=== PATIENT | female | born 1980 | race Caucasian/White ===

== ENCOUNTER 2023-01-14 13:59 | Outpatient (OUT) | payer OTHER, SELFPAY ==
--- NOTE | 2023-01-14 14:27 | ECG_ITS ---
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
--- NOTE | 2023-01-14 14:38 | P.GSHP_ITS ---
History of Present Illness History of Present Illness Chief complaint: pat visit Narrative: Patient presents for preadmission testing. The patient states for many years, since the of her children, she has had heavy painful menstrual cycles. She denies nausea, vomiting, fever, or any other complaints. Review of Systems ROS Narrative REVIEW OF SYSTEMS: Negative except as stated in HPI, ten or more systems reviewed. Constitutional: No fever , chills, weakness ENT: No sore throat or epistaxis Cardiovascular: No edema, chest pain, or palpitations Respiratory: No shortness of breath, cough, or wheezing Musculoskeletal: No joint pain or swelling Gastrointestinal: No abdominal pain, constipation, diarrhea, or vomiting Genitourinary: No dysuria or hematuria Neurological: No numbness, tingling, weakness, or headache Psychiatric: No mood changes PFSH PFS Medical History (Updated 01/14/23 @ 14:24 by Emilia Marie NP) Surgical History (Updated 01/14/23 @ 14:24 by Emilia Marie NP) Family History (Updated 01/14/23 @ 14:21 by Emilia Marie NP) Other Family history of COPD (chronic obstructive pulmonary disease) Family history of coronary artery disease Family history of diabetes mellitus Family history of heart disease Family history of hypertension Family history of myocardial infarction Family history of skin cancer Testicular cancer Social History (Updated 01/14/23 @ 14:26 by Emilia Marie NP) Within the past year, how often did you have a drink containing alcohol: monthly or less Smoking status: Never smoker Previous occupational history: healthcare social worker Highest level of school completed/degree received: high school graduate Meds Home Medications and Allergies Home Medications Medication Instructions Recorded Confirmed Type ascorbic acid (vitamin C) 500 mg mg PO 01/14/23 History capsule calcium carbonate 600 mg calcium 300 mg PO DAILY 01/14/23 01/14/23 History (1,500 mg) tablet (Calcium) cholecalciferol (vitamin D3) 25 25 mcg PO DAILY 01/14/23 01/14/23 History mcg (1,000 unit) capsule meloxicam 15 mg tablet 15 mg PO DAILY 01/14/23 01/14/23 History multivitamin (Daily Multi-Vitamin 1 tab PO DAILY 01/14/23 01/14/23 History tablet) zinc glycinate 30 mg capsule 30 mg PO DAILY 01/14/23 01/14/23 History Allergies Allergy/AdvReac Type Severity Reaction Status Date / Time adhesive Allergy Rash Verified 01/14/23 14:19 amoxicillin [From Augmentin] Allergy Nausea Verified 01/14/23 14:19 clavulanic acid Allergy Nausea Verified 01/14/23 14:19 [From Augmentin] Sulfa (Sulfonamide Allergy Hives Verified 01/14/23 14:19 Antibiotics) Exam Narrative: Exam Narrative: Constitutional: Awake, alert, comfortable, well-appearing, nontoxic, interactive, vital signs as charted Head: Normocephalic, atraumatic Neck: Supple, normal appearance, normal range of motion, no meningeal signs, no lymphadenopathy Respiratory: No respiratory distress, breath sounds clear Cardiovascular: Regular rate and rhythm, strong and regular heart tones Abdomen: Nontender, normal bowel sounds, soft, no CVA tenderness Musculoskeletal: Normal gait, no swelling or edema Skin: No rashes or induration, no lesions, only visible skin inspected Neuro: No neurological deficits, normal sensation Psychiatric: Oriented ?3, normal affect Assessment and Plan Assessment and Plan (1) Abnormal uterine bleeding (AUB): (2) Dysmenorrhea: (3) Menorrhagia: Plan Endometrial ablation/Josefina scheduled with Dr. Arriaga 01/27/2023.
== END 2023-01-14 14:00 ==
PROVIDERS: PCP Obstetrics & Gynecology; Visit Provider Obstetrics & Gynecology
DX: N93.9 Abnormal uterine and vaginal bleeding, unspecified (principal); N94.6 Dysmenorrhea, unspecified; N92.0 Excessive and frequent menstruation with regular cycle; Z01.810 Encounter for preprocedural cardiovascular examination
CPT/HCPCS: 93005; G0463

== ENCOUNTER 2023-01-27 06:17 | Day surgery (SDC) | payer OTHER, SELFPAY ==
[2023-01-14 14:20] VITALS: BP 109/74; PULSE 61; RESP 16; TEMP 36.3; O2SAT 99; BMI 25.7
[2023-01-27] VITALS (9 sets, daily range): BP systolic 107–119; BP diastolic 67–80; PULSE 64–112; RESP 14–18; TEMP 36.2–36.4; O2SAT 97–100; BMI 25.4
[2023-01-27 06:32] LABS: Basophils Percent Auto 0.6 % (0.2-2.0); Eosinophils Absolute Auto 0.1 10^3/uL (0.0-0.7); Eosinophils Percent Auto 1.8 % (0.9-7.0); Hematocrit 40.6 % (36.0-48.0); Hemoglobin 13.9 g/dL (12.0-16.0); Immature Granulocytes Abs Auto 0.04 10^3/uL (0.00-0.03); Immature Granulocytes Pct Auto 0.7 % (0.0-0.5); Lymphocytes Absolute Auto 1.7 10^3/uL (1.2-3.8); Lymphocytes Percent Auto 30.4 % (20.5-60.0); Mean Corpuscular HGB Conc 34.2 g/dL (29.9-35.2); Mean Corpuscular Hemoglobin 29.3 pg (26.7-34.0); Mean Corpuscular Volume 85.5 fL (81.0-99.0); Mean Platelet Volume 9.9 fL (9.5-13.5); Monocytes Absolute Auto 0.4 10^3/uL (0.3-0.8); Monocytes Percent Auto 7.2 % (1.7-12.0); Neutrophils Absolute Auto 3.2 10^3/uL (1.4-6.5); Neutrophils Percent Auto 59.3 % (43.0-75.0); Platelet Count 288 10^3/uL (150-450); Red Blood Count 4.75 10^6/uL (4.20-5.40); Red Cell Distribution Width 12.2 % (11.0-15.0); White Blood Count 5.4 10^3/uL (4.0-11.0)
[2023-01-27 06:47] LABS: HCG Quantitative <1 mIU/mL
[2023-01-27] MEDS: LACTATED RINGER'S SOLUTION 1,000 ML 50 ML IV ×2 (07:18→08:10)
[2023-01-27] MEDS: SCOPOLAMINE 1 EACH PATCH.TD.3 1 PATCH TD (07:26)
--- NOTE | 2023-01-27 08:02 | PC.NURSE ---
16FR RED RUBBER STRAIGHT CATH FOR 300CC CLEAR YELLOW URINE
--- NOTE | 2023-01-27 08:29 | OP_ITS ---
OPERATION DATE: ??01/27/2023 PROCEDURE:? Josefina endometrial ablation. PREOPERATIVE DIAGNOSIS:? Menorrhagia. POSTOPERATIVE DIAGNOSIS:? Menorrhagia. ANESTHESIA:? General. SURGEON:? Vince Arriaga D.O. CHAIR SPRING ASSEMBLER:? None. FINDINGS:? Both ostia seen.? Normal appearing uterus.? No gross polyps, fibroids or malignancies. SPECIMEN:? None. BLOOD LOSS:? 5 mL. PROCEDURE:? The patient was taken back to the OR where she was prepped and draped in the normal sterile fashion after being placed in the dorsal lithotomy position, after being placed under general anesthesia without difficulty.? A weighted speculum was placed into the vagina. The anterior lip was grasped with a single tooth tenaculum. The patient was then sounded to approximated 9 cm. The patient?s cervix was gently dilated using Hegar dilators. The hysteroscope was passed through the cervix into the uterus where both ostia were seen. No gross evidence of polyps, fibroids or malignancy. The cervical length was noted to be 5 cm. The total cavity length is 4 cm.? The Josefina ablation apparatus was set to approximately 4 cm in length. This was placed through the cervix and into the uterus. After the seal was tested, at that time the total ablation of 120 seconds was performed with the Josefina withoutdifficulty. All instruments were removed from the vagina. Excellent hemostasis noted.? Sponge and lap count correct times 2.? Patient taken to recovery in stable condition. [facility]
--- NOTE | 2023-01-27 08:45 | PC.NURSE ---
carlitos pad dry and intact
--- NOTE | 2023-01-27 08:50 | PC.NURSE ---
heat pack to abdomen
--- NOTE | 2023-01-27 09:33 | PC.NURSE ---
peripad dry; denies urge to void; denies urge for pain medication at this time
== END 2023-01-27 10:05 ==
PROVIDERS: PCP Obstetrics & Gynecology; Visit Provider Obstetrics & Gynecology
PROC: (CPT 58563; principal; 2023-01-27 07:30)
DX: N92.0 Excessive and frequent menstruation with regular cycle (principal); Z79.899 Other long term (current) drug therapy; N94.6 Dysmenorrhea, unspecified; N93.9 Abnormal uterine and vaginal bleeding, unspecified
CPT/HCPCS: 58563; 36415; 84702; 85025; J2704

== ENCOUNTER 2023-04-26 18:17 | Emergency (ER) | payer OTHER, SELFPAY ==
[2023-04-26 18:19] VITALS: BP 155/101; PULSE 101; RESP 18; TEMP 37.4; O2SAT 100; BMI 57.4
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
[2023-04-26 21:03] VITALS: BP 125/81
== END 2023-04-26 21:05 | disposition home or self-care (01) ==
PROVIDERS: Emergency Provider Internal Medicine
DX: S06.0X0A Concussion without loss of consciousness, initial encounter (principal); V43.52XA Car driver injured in collision with other type car in traffic accident, initial encounter; Z79.899 Other long term (current) drug therapy; F17.210 Nicotine dependence, cigarettes, uncomplicated
CPT/HCPCS: 70450; 71045; 72125; 99284

== ENCOUNTER 2023-05-19 19:00 | Outpatient (REF) | payer OTHER, SELFPAY ==
[2023-05-24 13:07] LABS: Age Gdln ACOG Testing Note (.); HPV Aptima Negative (Negative); IGP, Aptima HPV, rfx 16/18,45 Note (.)
== END 2023-05-19 19:01 | disposition home or self-care (01) ==
LOC: LAB 19:00
PROVIDERS: Visit Provider Physician Assistant
DX: Z01.419 Encounter for gynecological examination (general) (routine) without abnormal findings (principal)
CPT/HCPCS: 87624; G0145

== ENCOUNTER 2024-05-28 19:43 | Outpatient (REF) | payer OTHER, SELFPAY ==
[2024-06-04 11:08] LABS: Age Gdln ACOG Testing Note (.); HPV Aptima Negative (Negative); IGP, Aptima HPV, rfx 16/18,45 Note (.)
== END 2024-05-28 19:44 | disposition home or self-care (01) ==
LOC: LAB 19:43
PROVIDERS: Visit Provider Physician Assistant
DX: Z01.419 Encounter for gynecological examination (general) (routine) without abnormal findings (principal)
CPT/HCPCS: 87624; 88175

== ENCOUNTER 2025-05-27 12:48 | Outpatient (REF) | payer OTHER, SELFPAY ==
--- OUTSIDE RECORDS SUMMARY | 2025-05-13 11:30 | XMS_ITS | Encounter Summary ---
Author Organization [facility] Address [address] [place] [address] Care Team Providers Care Operation Shift Supervisor Name Role Phone Ramon Ngo DO Primary Care Provider [phone] Ramon Ngo DO Unavailable [phone] Reason for Visit * Reason Comments Ear Problem * Consultation (Routine) - Closed Specialty Diagnoses / Procedures Referred By Margaret kirby Referred To Contact Otolaryngology Diagnoses Chronic dysfunction of both eustachian tubes Procedures HI OFFICE/OUTPATIENT [facility] MDM 60 MINUTES Jacey Newby, [employer] [address] [place] [address] Phone: tel: fax: Rosey Dickson MD 112 [facility] 130 [place] [address] Phone: tel: fax: Referral ID Status Reason Start Date Expiration Date V isits Requested Visits Authorized [id number] Closed Specialty Services Required 05/07/2025 11/03/2025 1 1 Encounter Details Date Type Department Care Team (Late st Contact Info) Description 05/13/2025 11:30 AM EDT Office Visit [facility] [place] [facility] 112 [facility] 130 [place] [address] Rosey Dickson MD 112 [facility] 130 [place] [address] Ear fullness, bilateral (Primary Dx); Referred otalgia of right ear; ETD (Eustachian tube dysfunction), bilateral Social History Tobacco Use Types Packs/Day Years Used Date Smoking Tobacco: Never Smokeless Tobacco: Never Alcohol Use Standard Drinks/Week Comments Never 0 (1 standard drink = 0.6 oz pur e alcohol) caffeine: yes PHQ-2 Answer Date Recorded Patient Health Questionnaire-2 Score 0 12/07/2024 Comments No Sex and Gender Information Value Date Recorded Sex Assigned at Not on file Legal Sex Female 6:53 PM EDT Gender Identity Not on file Sexual Orientation Not on file documented as of this encounter Last Filed Vital Signs Vital Sign Reading Time Taken Comments Blood Pressure 108/74 05/13/2025 11:31 AM EDT Pulse 70 05/13/2025 11:31 AM EDT Temperature - - Respiratory Rate - - Oxygen Saturation - - Inhaled Oxygen Concentration - - Weight 68.9 kg (152 lb) 05/13/2025 11:31 AM EDT Height 160 cm (5' 3 ) 05/13/2025 11:31 AM EDT Body Mass Index 26.93 05/13/2025 11:31 AM EDT documented in this encounter Progress Notes * Rosey Dickson MD - 05/13/2025 11:30 AM EDT Subjective Patient ID: Christel Weiss is a 44 y.o. female who presents for Ear Problem Pt reports a 18-24 mo h/o RT ear fullness. Pt told she had OME. Gets shooting pain in the RT ear. Tx with steroids periodically. Pt has severe bruxism and wears an appliance day and night. Has seen aTMJ specialist in the past Review of Systems All other systems reviewed and are negative. Family History Problem Relation Name Age of Onset Hypothyroidism Mother Diabetes Father Heart disease Father Testicular cancer Father No Known Problems Sister No Known Problems Brother 2 brothers Cancer Paternal Grandmother Heart disease Paternal Grandmother Heart disease Paternal Grandfather Cancer Paternal Grandfather No Known Problems Daughter No Known Problems Son Melanoma Neg Hx Active Ambulatory Problems Diagnosis Date Noted Abnormal findings on diagnostic imaging of breast 09/22/2021 Abnormality of left breast on screening mammogram 04/08/2023 Bruxism 05/23/2020 Chronic fatigue syndrome 09/10/2021 Chronic tension-type headache 05/12/2020 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 Dysmenorrhea 09/14/2016 Menstrual disorder 04/08/2023 Seasonal allergies 11/25/2016 Menorrhagia 04/08/2023 Mild episode of recurrent major depressive disorder 03/31/2022 Vitamin D deficiency 12/05/2017 PVC (premature ventricular contraction) 09/14/2016 JESSENIA (generalized anxiety disorder) 11/25/2023 Resolved Ambulatory Problems Diagnosis Date Noted Anxiety 06/07/2018 Premature ventricular beats 09/14/2016 Past Medical History: Diagnosis Date Abnormal uterine bleeding (AUB) Allergies Arthritis Breast pain Chronic fatigue Chronic tension-type headache, intractable Mild episode of recurrent depressive disorder MTHFR mutation Screening mammogram for breast cancer 09/27/2022 Past Surgical History: Procedure Laterality Date ENDOMETRIAL ABLATION 01/27/2023 Alberto VAGINAL DELIVERY childbirth x2 WISDOM TOOTH EXTRACTION wisdom teeth x4 Allergies Allergen Reactions Amoxicillin-Pot Clavulanate GI intolerance Other Reaction(s): stomach upset Sulfa Antibiotics Unknown Other Reaction(s): childhood reaction Sulfamethoxazole-Trimethoprim Unknown Other Reaction(s): unknown Wound Dressing Adhesive Rash Other Reaction(s): rash Current Outpatient Medications on File Prior to Visit Medication Sig Dispense Refill Bacillus Coagulans-Inulin (PROBIOTIC-PREBIOTIC PO) Take by mouth cholecalciferol (Vitamin D-3) 50 MCG (2000 UT) tablet Take by mouth Daily doxycycline (Vibramycin) 100 MG capsule Take 1 capsule (100 mg) by mouth in the morning and 1 capsule (100 mg) before bedtime. Do all this for 10 days. Take with at least 8 ounces (large glass) of water, do not lie down for 30 minutes after. 20 capsule 0 [DISCONTINUED] Ascorbic Acid (Vitamin C) 500 MG capsule 1 capsule [DISCONTINUED] azithromycin (Zithromax) 250 MG tablet Take 2 tablets day one then 1 tablet daily 6 tablet 0 [DISCONTINUED] Calcium Carb-Cholecalciferol (CALCIUM 500 + D PO) Take 1 tablet by mouth Daily [DISCONTINUED] fluticasone (Flonase) 50 MCG/ACT nasal spray Administer 2 sprays into each nostril Daily Shake gently. Before first use, prime pump. After use, clean tip and replace cap. 16 g 5 [DISCONTINUED] predniSONE (Deltasone) 20 MG tablet Take 3 tablets for 2 days THEN 2 tablets for 2 days THEN 1 tablet for 2 days 12 tablet 0 No current facility-administered medications on file prior to visit. Objective Last Recorded Vitals Vitals: 05/13/25 1131 BP: 108/74 Pulse: 70 ENT Physical Exam Constitutional Appearance: patient appears well-developed, well-nourished and well-groomed, Head and Face Appearance: head appears normal and face appears atraumatic; Palpation: TMJ not tender bilaterally; Ear Ear Canals: right ear canal normal; left ear canal normal; Tympanic Membranes: right tympanic membrane normal; left tympanic membrane normal; Ear comments: Marvin tymps normal Nose External Nose: nares patent bilaterally; external nose normal; Internal Nose: septum normal; Oral Cavity/Oropharynx Tongue: normal; Oral mucosa: normal; Hard palate: normal; Soft palate: normal; Tonsils: normal; Base of Tongue: normal; OC/OP comments: IDL - no mass or ulcer. Neck Neck: neck normal; neck palpation normal; Thyroid: thyroid normal; Respiratory Inspection: breathing unlabored; normal breathing rate; Auscultation: breath sounds are clear; Cardiovascular Inspection: extremities are warm and well perfused; no peripheral edema present; Auscultation: regular rate and rhythm; Assessment/Plan Diagnoses and all orders for this visit: Ear fullness, bilateral Referred otalgia of right ear ETD (Eustachian tube dysfunction), bilateral Pt's otologic exam and tymps are normal, and I see no sign of a H&N neoplasm that would cause referred pain to the ear. I will refer pt to Dr Kaleb Madrigal for evaluation. I will also check an audio to see if there is any sign of hydrops, which would cause ear fullness as well. documented in this encounter Plan of Treatment Upcoming Encounters Date Type Department Care Team (Late st Contact Info) Description 05/27/2025 1:00 PM EDT Office Visit [facility] [address] [place] [address] Mar Amador NP [address] [place] [address] Arrived 07/31/2025 3:15 PM EST Clinical Support [facility] [address] [facility] [address] [place] [address] Marion Henry, [facility] [address] [place] [address] 08/06/2025 9:50 AM EST Office Visit [facility] [place] [facility] [address] [facility] [address] [place] [phone] Rosey Dickson MD [address] [facility] 130 [place] [address] 06/25/2026 10:00 AM EST Procedure Visit [facility] [address] [facility] [place] [address] Inge Welch PA [address] [facility] [place] [address] documented as of this encounter Visit Diagnoses Diagnosis Ear fullness, bilateral- Primary Referred otalgia of right ear ETD (Eustachian tube dysfunction), bilateral documented in this encounter Care Teams Operation Shift Supervisor Relationship Specialty Start Date End Date Ramon Ngo DO [address] [place] [id number] PCP - General Family Medicine 04/08/23 Ramon Ngo DO [address] [place], [place] [id number] PCP - Medical [employer] 08/15/18 08/14/99 documented as of this encounter
--- OUTSIDE RECORDS SUMMARY | 2025-05-27 10:00 | XMS_ITS | Encounter Summary ---
Author Organization [facility] Address [address] [place] [address] Care Team Providers Care Perfume Compounder Name Role Phone Ramon Ngo DO Primary Care Provider [phone] Ramon Ngo DO Unavailable [phone] Reason for Visit * Reason Comments Gynecologic Exam Encounter Details Date Type Department Care Team (Late Contact Info) Description 05/27/2025 10:00 AM EDT Office Visit [facility] [place] [facility] [address] [facility] [address] Inge Welch PA [address] [facility] [address] [place], [facility]11 Well woman exam with routine gynecological exam; Encounter for screening mammogram for malignant neoplasm of breast Social History Tobacco Use Types Packs/Day Years [...] Sign Reading Time Taken Comments Blood Pressure 112/70 05/27/2025 10:22 AM EDT Pulse - - Temperature - - Respiratory Rate - - Oxygen Saturation - - Inhaled Oxygen Concentration - - Weight 69 kg (152 lb 1.9 oz) 05/27/2025 10:22 AM EDT Height 160 cm (5' 3 ) 05/27/2025 10:22 AM EDT Body Mass Index 26.95 05/27/2025 10:22 AM EDT documented in this encounter Progress Notes * TEENA Sahu - 05/27/2025 10:00 AM EDT Reason for Appointment: Patient ID: Christel Weiss is a 44 y.o. female who presents for Gynecologic Exam Patient presents today for Annual Exam. MEDICATIONS Current Outpatient Medications Medication Instructions Bacillus Coagulans-Inulin (PROBIOTIC-PREBIOTIC PO) Take by mouth cholecalciferol (Vitamin D-3) 50 MCG (2000 UT) tablet Daily ALLERGIES Allergies Allergen Reactions Amoxicillin-Pot Clavulanate GI intolerance Other Reaction(s): stomach upset Sulfa Antibiotics Unknown Other Reaction(s): childhood reaction Sulfamethoxazole-Trimethoprim Unknown Other Reaction(s): unknown Wound Dressing Adhesive Rash Other Reaction(s): rash PROBLEMS Active Ambulatory Problems Diagnosis Date Noted Abnormal [...] mutation Screening mammogram for breast cancer 09/27/2022 HISTORY PAST MEDICAL HISTORY SOCIAL HISTORY Past Medical History: Diagnosis Date Abnormal uterine bleeding (AUB) Allergies Anxiety Arthritis Breast pain Bruxism Chronic fatigue Chronic tension-type headache, intractable Dysmenorrhea Menorrhagia Mild episode of recurrent depressive disorder MTHFR mutation Premature ventricular beats PVC (premature ventricular contraction) Screening mammogram for breast cancer 09/27/2022 DIANA [place]- neg Vitamin D deficiency Social History Tobacco Use Smoking status: Never Smokeless tobacco: Never Vaping Use Vaping status: Never Used Substance Use Topics Alcohol use: Never Comment: caffeine: yes Drug use: Never FAMILY HISTORY Family History Problem Relation Name Age of Onset Hypothyroidism Mother Diabetes Father Heart disease Father Testicular cancer Father No Known Problems Sister No Known Problems Brother 2 brothers Cancer Paternal Grandmother Heart disease Paternal Grandmother Heart disease Paternal Grandfather Cancer Paternal Grandfather No Known Problems Daughter No Known Problems Son Melanoma Neg Hx SURGICAL HISTORY Past Surgical History: Procedure Laterality Date ENDOMETRIAL ABLATION 01/27/2023 Alberto VAGINAL DELIVERY childbirth x2 WISDOM TOOTH EXTRACTION wisdom teeth x4 REVIEW OF SYSTEMS Review of Systems: Review of Systems Constitutional: Negative. HENT: Negative. Eyes: Negative. Respiratory: Negative. Cardiovascular: Negative. Gastrointestinal: Negative. Genitourinary: Negative. Musculoskeletal: Negative. Skin: Negative. Neurological: Negative. All other systems reviewed and are negative. Hematological: Negative. Endocrine: Negative. Allergic/Immunologic: Negative. OBJECTIVE Objective: Physical Exam Constitutional: Appearance: Normal appearance. She is well-developed. Genitourinary: Vulva normal. Cardiovascular: Rate and Rhythm: Normal rate and regular rhythm. Pulmonary: Effort: Pulmonary effort is normal. Breath sounds: Normal breath sounds. Abdominal: General: Bowel sounds are normal. There is no distension. Palpations: Abdomen is soft. Tenderness: There is no abdominal tenderness. There is no guarding or rebound. Musculoskeletal: General: No swelling. Normal range of motion. Right lower leg: No edema. Left lower leg: No edema. Neurological: Mental Status: She is alert and oriented to person, place, and time. Skin: General: Skin is warm and dry. Psychiatric: Mood and Affect: Mood normal. Behavior: Behavior normal. Vitals and nursing note reviewed. Exam conducted with a computer network specialist present. Vitals: Estimated body mass index is 26.95 kg/m?? as calculated from the following: Height as of this encounter: 5' 3 . Weight as of this encounter: 152 lb 1.9 oz. BP: 112/70 No LMP recorded. Patient has had an ablation. ASSESSMENT & PLAN ICD-10-CM 1. Well woman exam with routine gynecological exam Z01.419 THIN PREP TIS PAP AND HR HPV DNA CANCELED: THIN PREP TIS PAP AND HR HPV DNA 2. Encounter for screening mammogram for malignant neoplasm of breast Z12.31 Bilateral screening mammogram Bilateral screening mammogram Orders Placed This Encounter Procedures Bilateral screening mammogram Annual Wellness Exam: Patient presents today for routine annual exam. Patient states she has no current complaints. Patients vitals were reviewed and within normal limits. Growth and development is noted to be appropriate for age. Menstrual history is noted to be regular with no concerns reported. No mental health concerns was expressed. Pap Smear: Speculum was inserted into the vagina and pap was obtained without difficulty. HPV testing was performed per age guideline. Patient was advised that pap results could take anywhere from 7 to 10 days to receive and our office will reach out to the patient with those once we have them. Patient can also view results via [employer]. I reinforced importance of condom use for STI prevention. Patient declined cultures to be performed with today's visit. Breast Exam: Upon examination, clinical breast exam was noted to be normal. Patient was counseled on breast self-awareness, including the importance of knowing what is normal for her own breasts and promptly reporting any changes such as new lumps, skin dimpling, nipple discharge, or pain. Screening mammogram recommended annually beginning at age 40 or earlier if risk factors are present. Discussed signs and symptoms of breast cancer and when to seek medical attention. Answered all patient questions. Contraceptive Counseling (if applicable): Patient had salpingectomy as a form of contraceptive. Follow Up: Patient is to return to our office in one year for annual exam unless needed otherwise. Documented by TEENA Sahu on behalf of: TEENA Sahu documented in this encounter Plan of Treatment Upcoming Encounters Date Type Department Care Team (Late st Contact Info) Description 05/27/2025 1:00 PM EDT Office Visit [facility] [address] [place] [address] Mar Amador NP [address] [place] [address] Arrived 07/31/2025 3:15 PM EST Clinical Support [facility] 112 [facility] 130 [place] [address] Marion Henry, [facility] [address] [place] [address] 08/06/2025 9:50 AM EST Office Visit [facility] [facility] [address] [facility] [address] [place] [address] Rosey Dickson MD [address] [facility] [address] [place] [address] 06/25/2026 10:00 AM EST Procedure Visit [facility] RUELAS [address] [facility] [address] Inge Welch PA [address] [facility] [address] [place], [place] [id number] Scheduled Orders Name Type Priority Associated Diagnoses Orde r Schedule Bilateral screening mammogram Imaging Routine Encounter for screening mammogram for malignant neoplasm of breast Expected: 05/27/2025 (Approximate), Expires: 07/27/2026 THIN PREP TIS PAP AND HR HPV DNA Pathology and Cytology Routine Well woman exam with routine gynecological exam Ordered: 05/27/2025 documented as of this encounter Visit Diagnoses Diagnosis Well woman exam with routine gynecological exam Routine gynecological examination Encounter for screening mammogram for malignant neoplasm of breast documented in this encounter Care Teams Perfume Compounder Relationship Specialty Start Date End Date Ramon Ngo DO [address] [place] [phone] PCP - General Family Medicine 04/08/23 Ramon Ngo DO [address] [place] [address] PCP - Medical [employer] [place] [employer] 08/15/18 08/14/99 documented as of this encounter
--- OUTSIDE RECORDS SUMMARY | 2025-05-27 12:53 | XMS_ITS | Encounter Summary ---
Author Organization [facility] Address [address] [place] [address] Care Team Providers Care Core Worker Name Role Phone Ramon Ngo DO Primary Care Provider [phone] Ramon Ngo DO Unavailable [phone] Encounter Details Date Type Department Care Team (Late Contact Info) Description 05/18/2023 Abstract [facility] [place] [facility] [address] [facility] [place] [phone] Inge Welch PA [address] [facility] [address] [place], [facility]11 Social History Tobacco Use Types Packs/Day Years Used Date Smoking Tobacco: Never Smokeless Tobacco: Never Alcohol Use Standard Drinks/Week Comments Never 0 (1 standard drink = 0.6 oz pur e alcohol) caffeine: yes Comments Unknown Sex and Gender Information Value Date Recorded Sex Assigned at Not on file Legal Sex Female 6:53 PM EDT Gender Identity Not on file Sexual Orientation Not on file documented as of this encounter Plan of Treatment Upcoming Encounters Date Type Department Care Team (Late st Contact Info) Description 05/27/2025 1:00 PM EDT Office Visit [facility] [address] [place] [address] Mar Amador NP [address] [place] [address] Arrived 07/31/2025 3:15 PM EST Clinical Support [facility] [place] [facility] [address] [facility] [address] [place] [phone] Marion Henry, [facility] [address] [place] [address] 08/06/2025 9:50 AM EST Office Visit [facility] [place] [facility] [address] [facility] [address] [place] [phone] Rosey Dickson MD [address] [facility] [address] [place], [place] [phone] 06/25/2026 10:00 AM EST Procedure Visit [facility] RU[facility]AS [address] [facility] [place] [address] Inge Welch PA [address] [facility] [place] [address] documented as of this encounter Visit Diagnoses Not on filedocumented in this encounter Care Teams Core Worker Relationship Specialty Start Date End Date Ramon Ngo DO [address] [place] [address] PCP - General Family Medicine 04/08/23 Ramon Ngo DO [address] [place] [address] PCP - Medical [employer] 08/15/18 08/14/99 documented as of this encounter
--- OUTSIDE RECORDS SUMMARY | 2025-05-27 12:53 | XMS_ITS | Encounter Summary ---
Author Organization [facility] Address [address] [place] [address] Care Team Providers Care Responder Name Role Phone Ramon Ngo DO Primary Care Provider Ramon Ngo DO Unavailable [phone] Encounter Details Date Type Department Care Team (Late Contact Info) Description 01/28/2023 Abstract [facility] [address] [facility] [place] [address] Vince Arriaga DO [address] [facility] [place] [address] Social History Tobacco Use Types Packs/Day Years Used Date Smoking Tobacco: Never Assessed Comments Unknown Sex and Gender Information Value Date Recorded Sex Assigned at Not on file Legal Sex Female 6:53 PM EDT Gender Identity Not on file Sexual Orientation Not on file documented as of this encounter Plan of Treatment Upcoming Encounters Date Type Department Care Team (Late Contact Info) Description 05/27/2025 1:00 PM EDT Office Visit [facility] [address] [place] [address] Mar Amador NP [address] [place] [address] Arrived 07/31/2025 3:15 PM EST Clinical Support [facility] [place] [facility] [address] [place] [address] [place] [address] Marion Henry, [facility] [address] [place] [address] 08/06/2025 9:50 AM EST Office Visit [facility] [place] [facility] [address] [place] [place] [address] Rosey Dickson MD [address] [place] [address] [place] [address] 06/25/2026 10:00 AM EST Procedure Visit [facility] [address] [facility] [place] [address] Inge Welch PA [address] [facility] [address] [place], [place] [id number] documented as of this encounter Visit Diagnoses Not on filedocumented in this encounter Care Teams Responder Relationship Specialty Start Date End Date Ramon Ngo DO [address] [place] [phone] PCP - General Family Medicine 04/08/23 Ramon Ngo DO [address] [place] [address] PCP - Medical [employer] 08/15/18 08/14/99 documented as of this encounter
--- OUTSIDE RECORDS SUMMARY | 2025-05-27 12:53 | XMS_ITS | Encounter Summary ---
Author Organization [facility] Address [address] [facility] [place] [address] Care Team Providers Care Fermenter Wine Name Role Phone Ramon Ngo DO Primary Care Provider [phone] Ramon Ngo DO Unavailable [phone] Encounter Details Date Type Department Care Team (Late Contact Info) Description 05/21/2024 Orders Only [facility] [address] [employer] [address] [place] [address] Claudia Vu LPN [address] [employer] [address] [place] [address] [place] [address] Social History Tobacco Use Types Packs/Day Years Used Date Smoking Tobacco: Never Smokeless Tobacco: Never Alcohol Use Standard Drinks/Week Comments Never 0 (1 standard drink = 0.6 oz pur e alcohol) caffeine: yes PHQ-2 Answer Date Recorded Patient Health Questionnaire-2 Score 0 02/09/2024 Comments No Sex and Gender Information Value [...] Family Medicine [address] [place] [address] Mar Amador NP [address] [place] [address] Arrived 07/31/2025 3:15 PM EST Clinical Support [facility] [place] [facility] [address] [facility] [address] [place] [phone] Marion Henry, [facility] [address] [place] [address] 08/06/2025 9:50 AM EST Office Visit [facility] [place] [facility] [address] [facility] [address] [place] [address] Rosey Dickson MD [address] [facility] 130 [place] [address] 06/25/2026 10:00 AM EST Procedure Visit [facility] [address] [facility] [place] [address] Inge Welch PA [address] [facility] [address] [place], [place] [phone] documented as of this encounter Procedures Procedure Name Priority Date/Time Associated Diagnosis Comments PAP SMEAR Routine 05/19/2023 12:00 AM EDT documented in this encounter Results * Pap Smear (05/19/2023 12:00 AM EDT) Swab Cervical swab / Unknown Bart Nurse [facility] Ob LAB CYTOLOGY ORDERABLES Final Result Performing Organization Address City/State/[facility] Co de Phone Number EXTERNAL LAB documented in this encounter Visit Diagnoses Not on filedocumented in this encounter Care Teams Fermenter Wine Relationship Specialty Start Date End Date Ramon Ngo DO [address] [place] [address] PCP - General Family Medicine 04/08/23 Ramon Ngo DO [address] [place] [address] PCP - Medical [place] [employer] 08/15/18 08/14/99 documented as of this encounter
--- OUTSIDE RECORDS SUMMARY | 2025-05-27 12:53 | XMS_ITS | Encounter Summary ---
Author Organization [facility] Address [address] [place] [address] Care Team Providers Care Gem Setter Name Role Phone Ramon Ngo DO Primary Care Provider Ramon Ngo DO Unavailable [phone] Encounter Details Date Type Department Care Team (Late Contact Info) Description 02/01/2023 Abstract [facility] [address] [place] [address] Vince Arriaga DO [address] [facility] [place] [address] Social History Tobacco Use Types Packs/Day [...] Family Medicine [address] [place] [address] Mar Amador NP [address] [place] [address] Arrived 07/31/2025 3:15 PM EST Clinical Support [facility] [place] [facility] [address] [place] [address] [place] [address] Marion Henry, [facility] [address] [place] [address] 08/06/2025 9:50 AM EST Office Visit [facility] [place] [facility] [address] [place] [address] [place] [address] Rosey Dickson MD [address] [facility] [address] [place] [address] 06/25/2026 10:00 AM EST Procedure Visit [facility] [address] [facility] [address] Inge Welch PA [address] [facility] [address] [place], [place] [phone] documented as of this encounter Visit Diagnoses Not on filedocumented in this encounter Care Teams Gem Setter Relationship Specialty Start Date End Date Ramon Ngo DO [address] [place] [phone] PCP - General Family Medicine 04/08/23 Ramon Ngo DO [address] [place] [address] PCP - Medical [place] [employer] 08/15/18 08/14/99 documented as of this encounter
--- OUTSIDE RECORDS SUMMARY | 2025-05-27 12:53 | XMS_ITS | Clinical Summary ---
Author Organization Gonzalez [facility] Address [facility], [address] [place] [address] Care Team Providers Care Manager Instrumentation Name Role Phone Mar Amador CANE FLUME FEEDING MACHINE OPERATOR - LINDERMAN MACHINE OPERATOR Primary Care Provider [phone] Social History Tobacco Use Types Packs/Day Years Used Date Smoking Tobacco: Never Assessed Comments Unknown Sex and Gender Information Value Date Recorded Sex Assigned at Not on file Legal Sex Female 1:17 PM EST Gender Identity Not on file Sexual Orientation Not on file Plan of Treatment Not on file Insurance [employer] Care Teams Manager Instrumentation Relationship Specialty Start Date End Date Mar Amador APRN - NP [address] [place] [address] PCP - General 07/21/16
--- OUTSIDE RECORDS SUMMARY | 2025-05-27 12:53 | XMS_ITS | Clinical Summary ---
Author Organization [facility] Address [address] [place] [address] Care Team Providers Care Grill Attendant Name Role Phone Ramon Ngo DO Primary Care Provider [phone] Ramon Ngo DO Unavailable [phone] Allergies Active Allergy Reactions Criticality Noted Date Comments Amoxicillin-Pot Clavulanate GI intolerance 03/31/2022 Other Reaction(s): stomach upset Sulfa Antibiotics Unknown 03/31/2022 Other Reaction(s): childhood reaction Sulfamethoxazole-Trimetho prim Unknown 03/31/2022 Other Reaction(s): unknown Wound Dressing Adhesive Rash Low 03/31/2022 Other Reaction(s): rash Medications Bacillus Coagulans-Inuli n (PROBIOTIC-PREB IOTIC PO) Take by mouth Active cholecalciferol (Vitamin D-3) 50 MCG (2000 UT) tablet Take by mouth Daily Active Ascorbic Acid (Vitamin C) 500 MG capsule 1 capsule 025 Discontinu ed(Therapy completed) Calcium Carb-Cholecalci ferol (CALCIUM 500 + D PO) Take 1 tablet by mouth Daily 025 Discontinu ed(Therapy completed) azithromycin (Zithromax) 250 MG tabletIndicatio ns:Acute non-recurrent maxillary sinusitis Take 2 tablets day one then 1 tablet daily 6 tablet 5 025 Discontinu ed(Therapy completed) predniSONE (Deltasone) 20 MG tabletIndicatio ns:Bronchitis Take 3 tablets for 2 days THEN 2 tablets for 2 days THEN 1 tablet for 2 days 12 tablet 5 025 Discontinu ed(Reorder ) predniSONE (Deltasone) 20 MG tabletIndicatio ns:Chronic dysfunction of both eustachian tubes Take 3 tablets for 2 days THEN 2 tablets for 2 days THEN 1 tablet for 2 days 12 tablet 5 025 Discontinu ed(Therapy completed) fluticasone (Flonase) 50 MCG/ACT nasal sprayIndication s:Chronic dysfunction of both eustachian tubes Administer 2 sprays into each nostril Daily Shake gently. Before first use, prime pump. After use, clean tip and replace cap. 16 g 5 5 025 Discontinu ed(Therapy completed) doxycycline (Vibramycin) 100 MG capsuleIndicati ons:Acute non-recurrent maxillary sinusitis Take 1 capsule (100 mg) by mouth in the morning and 1 capsule (100 mg) before bedtime. Do all this for 10 days. Take with at least 8 ounces (large glass) of water, do not lie down for 30 minutes after. 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 Resolved Problems Problem Noted Date Diagnosed Date Resolved Date Anxiety 06/07/2018 12/07/2024 Premature ventricular beats 09/14/2016 12/07/2024 Encounters Date Type Department Care Team Description 05/27/2025 10:00 AM EDT Office Visit [facility] [place] [facility] [address] [place] [place] [address] [place] [phone] Inge Welch PA Well woman exam with routine gynecological exam; Encounter for screening mammogram for malignant neoplasm of breast 05/27/2025 Travel 05/27/2025 Bamboo flowsheet [facility] [address] [place] [place] [address] [place] [address] Inge Welch PA 05/13/2025 11:30 AM EDT Office Visit [facility] [place] [facility] [address] [facility] [address] [place] [address] Rosey Dickson MD Ear fullness, bilateral (Primary Dx); Referred otalgia of right ear; ETD (Eustachian tube dysfunction), bilateral 05/13/2025 Bamboo flowsheet [facility] [place] [facility] [address] [facility] [address] [place] [address] Rosey Dickson MD 05/13/2025 Travel 05/08/2025 Telephone [facility] [address] [place] [address] Tyra [place] MA Medication Question 05/07/2025 Telephone [facility] [address] [place] [address] Tyra [place] MA Referral 04/29/2025 7:30 AM EDT Office Visit [facility] [address] [place] [address] Jacey Newby NP Chronic dysfunction of both eustachian tubes (Primary Dx) 04/29/2025 Bamboo flowsheet [facility] [address] [place] [address] Jacey Newby NP 04/29/2025 Travel from Last 3 Months Immunizations Immunization Administration Dates Next Due Influenza, Injectable, MDCK, preservative free 05/28/2024 Influenza, injectable, quadrivalent 06/07/2018,1 08/30/2015 Influenza, injectable, quadr ivalent, preservative free 06/24/2023,06/25/2022,05/31/2019,2015 Family History Medical History Relation Name Comments No Known Problems Brother 2 brothers No Known Problems Daughter Diabetes Father Heart disease Father Testicular cancer Father Hypothyroidism Mother Cancer Paternal Grandfather Heart disease Paternal Grandfather Cancer Paternal Grandmother Heart disease Paternal Grandmother No Known Problems Sister No Known Problems Son Melanoma Neg Hx Relation Name Status Comments Brother 2 Daughter Alive Father Alive Maternal Grandfather Maternal Grandmother Mother Alive Paternal Grandfather Paternal Grandmother Sister Son Alive Social History Tobacco Use Types Packs/Day Years Used Date Smoking Tobacco: Never Smokeless Tobacco: Never Tobacco Cessation:Counseling Given: Not Answered Alcohol Use Standard Drinks/Week Comments Never 0 (1 standard drink = 0.6 oz pur e alcohol) caffeine: yes PHQ-2 Answer Date Recorded Patient Health Questionnaire-2 Score 0 12/07/2024 Comments No Sex and Gender Information Value Date Recorded Sex Assigned at Not on file Legal Sex Female 6:53 PM EDT Gender Identity Not on file Sexual Orientation Not on file Last Filed Vital Signs Vital Sign Reading Time Taken Comments Blood Pressure 112/70 05/27/2025 10:22 AM EDT Pulse 70 05/13/2025 11:31 AM EDT Temperature 36.7 C (98.1 F) 04/29/2025 7:33 AM EDT Respiratory Rate 18 12/07/2024 8:08 AM EDT Oxygen Saturation 98% 04/29/2025 7:33 AM EDT Inhaled Oxygen Concentration - - Weight 69 kg (152 lb 1.9 oz) 05/27/2025 10:22 AM EDT Height 160 cm (5' 3 ) 05/27/2025 10:22 AM EDT Body Mass Index 26.95 05/27/2025 10:22 AM EDT Plan of Treatment Upcoming Encounters Date Type Department Care Team (Late st Contact Info) Description 05/27/2025 1:00 PM EDT Office Visit [facility] [address] [place] [address] Mar Amador NP [address] [place] [address] Arrived 07/31/2025 3:15 PM EST Clinical Support [facility] [address] [place] [address] [place] [phone] Marion Henry, [facility] [address] [place] [address] 08/06/2025 9:50 AM EST Office Visit [facility] [place] [facility] [address] [facility] 130 [place] [address] Rosey Dickson MD 112 [facility] 130 [place] [address] 06/25/2026 10:00 AM EST Procedure Visit [facility] [address] [facility] [address] Inge Welch PA [address] [facility] [place] [address] Health Maintenance Due Date Last Done Comments HPV/Cotest 08/28/2025 08/28/2020 Mammogram 01/10/2026 01/10/2025, 08/2 10/2023, 10/06/2023, Additional history exists Influenza Vaccine (#1) 2026 , 06/24/2023, 06/25/2022, Additional history exists Postponed from 04/15/2025 (Patient Refused) Cervical Cancer Screening 05/19/2026 Pap Smear 05/19/2026 05/19/2023, 08/28/2020 Procedures Procedure Name Priority Date/Time Associated Diagnosis Comments BI MAMMOGRAM SCREENING TOMOSYNTHESIS BILATERAL Today 01/10/2025 3:25 PM EDT Other screening mammogram PAP SMEAR Routine 05/19/2023 12:00 AM EDT Q - THINPREP(R) TIS AND HPV MRNA E6/E7 RFL HPV 16,18/45 Routine 08/28/2020 from Last 3 Months or Most Recently Relevant to Health Maintenance Results * Bilateral screening mammogram with tomosynthesis (01/10/2025 3:25 PM EDT) Anatomical Region Laterality Modality Breast Bilateral Mammography 01/11/2025 11:0 5 AM EDT Impressions 01/11/2025 11:12 AM EDT Impression: No specific evidence of malignancy seen in either breast. BIRADS 2 - Benign Findings DENSITY: The breasts are heterogeneously dense, which may obscure small masses. FOLLOW-UP: Routine Screening Mammogram ELECTRONICALLY SIGNED BY: Charles Zaldivar M.D. Narrative 01/11/2025 11:12 AM EDT Examination: BI MAMMOGRAM SCREENING TOMOSYNTHESIS BILATERAL Clinical History: screening Technique: Screening digital mammography study of both breasts was performed with 2-D and 3-D tomosynthesis imaging. Study was compared to the screening mammogram study of the breasts dated 09/30/2023, diagnostic mammogram study of the right breast dated 10/06/2023, ultrasound study of the right breast dated 10/06/2023 and diagnostic mammogram study of the right breast dated 04/06/2024. Findings: There is no evidence of interval dominant spiculated mass, grouped microcalcifications, or skin thickening which would be suggestive of malignancy. Mild scattered benign-appearing calcifications are noted on the right with a few benign-appearing calcifications seen on the left. Procedure Note Charles Zaldivar MD - 01/11/2025 Examination: BI MAMMOGRAM SCREENING TOMOSYNTHESIS BILATERAL Clinical History: screening Technique: Screening digital mammography study of both breasts wasperformed with 2-D and 3-D tomosynthesis imaging. Study was compared tothe screening mammogram study of the breasts dated 09/30/2023, diagnosticmammogram study of the right breast dated 10/06/2023, ultrasound study ofthe right breast dated 10/06/2023 and diagnostic mammogram study of theright breast dated 04/06/2024. Findings: There is no evidence of interval dominant spiculated mass,grouped microcalcifications, or skin thickening which would be suggestiveof malignancy. Mild scattered benign-appearing calcifications are noted on the right witha few benign-appearing calcifications seen on the left. IMPRESSION: Impression: No specific evidence of malignancy seen in either breast. BIRADS 2 - Benign Findings DENSITY: The breasts are heterogeneously dense, which may obscure smallmasses. FOLLOW-UP: Routine Screening Mammogram ELECTRONICALLY SIGNED BY: Charles Zaldivar M.D. Mar Amador AD WRITER IMG BI PROCEDURES Final Result * Pap Smear (05/19/2023 12:00 AM EDT) Swab Cervical swab / Unknown Bart Nurse [facility] Ob LAB CYTOLOGY ORDERABLES Final Result EXTERNAL LAB * Q - THINPREP(R) TIS AND HPV MRNA E6/E7 RFL HPV 16,18/45 (08/28/2020) CLINICAL INFORMATION: None given [facility] LMP: None given [facility] PREV. PAP: None given [facility]NAL [facility] PREV. BX: None given [facility] SOURCE: None given [facility] STATEMENT OF ADEQUACY: SEE NOTE [facility] Comment: Satisfactory for evaluation. Endocervical/transformation zone component absent. INTERPRETATION/RE SULT: Negative for intraepithelial lesion or malignancy. [facility] COMMENT: This Pap test has been evaluated with computer assisted technology. [facility] EVENT CREW TECHNICIAN: SEE NOTE NO [facility] Comment: PCJ, SCT(ASCP) CT screening location: [facility], [address] [place] [address]. COMMENT SEE NOTE [facility] Comment: EXPLANATORY NOTE: The Pap is a screening test for cervical cancer. It is not a diagnostic test and is subject to false negative and false positive results. It is most reliable when a satisfactory sample, regularly obtained, is submitted with relevant clinical findings and history, and when the Pap result is evaluated along with historic and current clinical information. HPV MRNA E6/E7 Not Detected Not Detected [facility] Comment: This test was performed using the APTIMA HPV Assay ([employer] This assay detects E6/E7 viral messenger RNA (mRNA) from 14 high-risk HPV types (16,18,31,33,35,39,45,51,52,56,58,59,66,68). The analytical performance characteristics of this assay have been determined by [employer]. The modifications have not been cleared or approved by the FDA. This assay has been validated pursuant to the CLIA regulations and is used for clinical purposes. 08/28/2020 Mar Amador AD WRITER ECW LABS Final Result [facility] from Last 3 Months or Most Recently Relevant to Health Maintenance Insurance [employer] Care Teams Grill Attendant Relationship Specialty Start Date End Date Ramon Ngo DO [address] [place] [address] PCP - General Family Medicine 04/08/23 Ramon Ngo DO [address] [place] [address] PCP - Medical [place] [employer] 08/15/18 08/14/99
--- OUTSIDE RECORDS SUMMARY | 2025-05-27 12:53 | XMS_ITS | Encounter Summary ---
Author Organization [facility] Address [address] [place] [address] Care Team Providers Care Time Piece Repairer Name Role Phone Ramon Ngo DO Primary Care Provider [phone] Ramon Ngo DO Unavailable [phone] Encounter Details Date Type Department Care Team (Late Contact Info) Description 05/27/2025 Bamboo flowsheet [facility] [address] [facility] [place] [phone] Inge Welch PA [address] [facility] [address] [place], [facility] Social History Tobacco Use Types Packs/Day Years [...] Family Medicine [address] [place] [address] Mar Amador, MATTHEW [address] [place] [address] Arrived 07/31/2025 3:15 PM EST Clinical Support [facility] [place] [facility] [address] [facility] [address] [place] [address] [place] Henry, [facility] [address] [place] [address] 08/06/2025 9:50 AM EST Office Visit [facility] [place] [facility] [address] [facility] [address] [place] [address] Rosey Dickson MD [address] [facility] [address] [place], [place] [phone] 06/25/2026 10:00 AM EST Procedure Visit [facility] [address] [facility] [place] [address] Inge Welch PA [address] [facility] [place] [address] documented as of this encounter Visit Diagnoses Not on filedocumented in this encounter Care Teams Time Piece Repairer Relationship Specialty Start Date End Date Ramon Ngo DO [address] [place] [address] PCP - General Family Medicine 04/08/23 Ramon Ngo DO [address] [place] [address] PCP - Medical [place] [employer] 08/15/18 08/14/99 documented as of this encounter
--- OUTSIDE RECORDS SUMMARY | 2025-05-27 12:53 | XMS_ITS | Encounter Summary ---
Author Organization [facility] Address [address] [place] [address] Care Team Providers Care Dietist Name Role Phone Ramon Ngo DO Primary Care Provider [phone] Ramon Ngo DO Unavailable [phone] Encounter Details Date Type Department Care Team (Late Contact Info) Description 05/13/2025 Bamboo flowsheet [facility] [place] [facility] [address] [email or web address] 130 [place] [address] Rosey Dickson MD [address] [facility] [address] [place], [place] [phone] Social History Tobacco Use Types Packs/Day Years [...] Family Medicine [address] [place] [address] Mar Amador NP [address] [place] [address] Arrived 07/31/2025 3:15 PM EST Clinical Support [facility] [place] [facility] [address] [email or web address] [address] [place] [address] Marion Henry, [facility] [address] [place] [address] 08/06/2025 9:50 AM EST Office Visit [facility] [place] [facility] [address] [email or web address] [address] [place] [address] Rosey Dickson MD [address] [facility] [address] [place], [place] [address] 06/25/2026 10:00 AM EST Procedure Visit [facility] [address] [facility] [place] [address] Inge Welch PA [address] [facility] [address] [place], [place] [address] documented as of this encounter Visit Diagnoses Not on filedocumented in this encounter Care Teams Dietist Relationship Specialty Start Date End Date Ramon Ngo DO [address] [place] [address] PCP - General Family Medicine 04/08/23 Ramon Ngo DO [address] [place] [address] PCP - Medical [place] [employer] 08/15/18 08/14/99 documented as of this encounter
--- OUTSIDE RECORDS SUMMARY | 2025-05-27 12:53 | XMS_ITS | Encounter Summary ---
Author Organization [facility] Address [address] [place] [address] Care Team Providers Care Coverstitch Elastic Attacher Name Role Phone Ramon Ngo DO Primary Care Provider [phone] Ramon Ngo DO Unavailable [phone] Encounter Details Date Type Department Care Team (Latest Contact Info) Description 05/27/2025 Travel Social History Tobacco Use Types Packs/Day Years [...] Family Medicine [address] [place] [address] Mar Amador, MATTHEW [address] [place] [address] Arrived 07/31/2025 3:15 PM EST Clinical Support [facility] [address] [place] [address] [place] [address] [place] Henry, [facility] [address] [place] [address] 08/06/2025 9:50 AM EST Office Visit [facility] [place] [facility] [address] [facility] 130 [place] [address] Rosey Dickson MD [address] [facility] 130 [place] [address] 06/25/2026 10:00 AM EST Procedure Visit [facility] 102 [facility] [address] Inge Welch PA 102 [facility] [place] [address] documented as of this encounter Visit Diagnoses Not on filedocumented in this encounter Care Teams Coverstitch Elastic Attacher Relationship Specialty Start Date End Date Ramon Ngo DO [address] [place], [place] [phone] PCP - General Family Medicine 04/08/23 Ramon Ngo DO [address] [place] [address] PCP - Medical [place] [employer] 08/15/18 08/14/99 documented as of this encounter
--- OUTSIDE RECORDS SUMMARY | 2025-05-27 12:55 | XMS_ITS | CCD ---
Author Organization [facility] Inform ion Partnership [facility] Care Team Providers Care Fiberglass Quality Technician Name Role Phone WEST, DR DEBRA Pisano Consulting Unavailable VIVIANE ., DR IBANEZ Attending Unavailable VIVIANE ., DR IBANEZ Admitting Unavailable VIVIANE ., DR IBANEZ Consulting Unavailable Ramon Ngo DO Primary Care Provider [phone] Ramon Ngo DO Unavailable MAR HAGAN Attending Unavailable PIERRE WILLIS Attending Unavailable INGE BAE Attending Unavailable MAR HAGAN Referring Unavailable SUJIT NEWBY Attending Unavailable ROESY ENGLAND Attending Unavailable SUJIT NEWBY Referring Unavailable MAR HAGAN Attending Unavailable Allergies Allergy Classification Reported Allergen(s) Allergy Type Date of Onset Reaction(s) Facility (20 sources) Sulfamethoxazole / Trimethoprim Drug Allergy 2 Unknown [facility] (20 sources) Sulfonamides (Antibiotic) Drug Allergy 2 Unknown [facility] (20 sources) Amoxicillin-Pot Clavulanate Drug Allergy 2 GI intolerance [facility] Work Phone: (20 sources) Wound Dressing Adhesive Drug Allergy 2 Rash [facility] Medications Current Medications Medication Drug Class(es) Dates Sig (Normalized) Sig (Original) ascorbic acid 500 mg oral capsule (20 sources) Vitamin C End: 05-13-2025 Ascorbic Acid (Vitamin C) 500 MG capsule 1 capsule 05/13/2025 Discontinued (Therapy completed) azithromycin 250 mg oral tablet (10 sources) Macrolide Antimicrobial Start: 12-27-2024 End: 05-13-2025 azithromycin (Zithromax) 250 MG tablet Indications: Acute non-recurrent maxillary sinusitis Take 2 tablets day one then 1 tablet daily 6 tablet 12/27/2024 05/13/2025 Discontinued (Therapy completed) Bacillus coagulans / Inulin (20 sources) Bacillus Coagulans-Inulin (PROBIOTIC-PREBIOT IC PO) Take by mouth Active Calcium Carb-Cholecalcifero l (CALCIUM 500 + D PO) (20 sources) End: 05-13-2025 take 1 tablet by mouth once daily Calcium Carb-Cholecalcifer ol (CALCIUM 500 + D PO) Take 1 tablet by mouth Daily 05/13/2025 Discontinued (Therapy completed) take 1 tablet by mouth once paola y Calcium Carb-Cholecalciferol (CALCIUM 500 + D PO) Take 1 tablet by mouth Daily Active cetirizine hydrochloride 10 mg oral tablet (3 sources) Histamine-1 Receptor Antagonist End: 05-28-2024 cetirizine (ZyrTEC) 10 MG tablet Take by mouth 05/28/2024 Discontinued cholecalciferol 0.05 mg oral tablet (16 sources) Vitamin D cholecalciferol (Vitamin D-3) 50 MCG (2000 UT) tablet Take by mouth Daily Active End: 05-28-2024 take 1 capsule by mouth in the morning cholecalciferol (Vitamin D-3) 50 MCG (2000 UT) capsule Take 2,000 Units by mouth in the morning. 05/28/2024 Discontinued doxycycline hyclate 100 mg oral capsule (4 sources) Tetracycline-class Drug Start: 05-08-2025 End: 05-18-2025 doxycycline (Vibramycin) 100 MG capsule Indications: Acute non-recurrent maxillary sinusitis Take 1 capsule (100 mg) by mouth in the morning and 1 capsule (100 mg) before bedtime. Do all this for 10 days. Take with at least 8 ounces (large glass) of water, do not lie down for 30 minutes after. 20 capsule 05/08/2025 05/18/2025 Active fluticasone propionate 0.05 mg/actuat metered dose nasal spray (7 sources) Corticosteroid Start: 04-29-2025 End: 04-29-2026 take 2 spray(s) nasal route once daily fluticasone (Flonase) 50 MCG/ACT nasal spray Indications: Chronic dysfunction of both eustachian tubes Administer 2 sprays into each nostril Daily Shake gently. Before first use, prime pump. After use, clean tip and replace cap. 16 g 5 04/29/2025 05/13/2025 Discontinued (Therapy completed) Multiple Vitamins-Minerals (Multivitamin Adults) tablet (3 sources) End: 05-28-2024 Multiple Vitamins-Minerals (Multivitamin Adults) tablet as directed Orally 05/28/2024 Discontinued Multiple Vitamin s-Minerals (Multivitamin Adults) tablet as directed Orally Active multivitamin (Theragran) tablet (3 sources) End: 05-28-2024 take 1 tablet by mouth once daily multivitamin (Theragran) tablet Take 1 tablet by mouth Daily 05/28/2024 Discontinued take 1 tablet by mouth once paola y multivitamin (Theragran) tablet Take 1 tablet by mouth Daily Active predniSONE 20 mg oral tablet (12 sources) Start: 12-27-2024 End: 05-13-2025 predniSONE (Deltasone) 20 MG tablet Indications: Chronic dysfunction of both eustachian tubes Take 3 tablets for 2 days THEN 2 tablets for 2 days THEN 1 tablet for 2 days 12 tablet 04/29/2025 05/13/2025 Discontinued (Therapy completed) zinc gluconate 50 mg oral tablet (3 sources) End: 05-28-2024 zinc gluconate 50 MG tablet 1 (one) time each day at the same time. 05/28/2024 Discontinued Problems Active Problems Problem Classification Problem Date Documented Da te Episodic/Chronic Anxiety disorders (20 sources) Anxiety; Translations: [Anxiety disorder, unspecified] Onset: 06-07-2018 Resolved: 12-07-2024 04-08-2023 Chronic Cardiac dysrhythmias (20 sources) Multiple premature ventricular complexes; Translations: [Ventricular premature depolarization] Onset: 09-14-2016 Resolved: 12-07-2024 04-08-2023 Chronic Chronic obstructive pulmonary disease and bronchiectasis (2 sources) Bronchitis; Translations: [Bronchitis, not specified as acute or chronic] 12-27-2024 Episodic Genitourinary symptoms and ill-defined conditions (4 sources) Dysuria; Translations: [Dysuria] 09-03-2024 Episodic Headache; including migraine (20 sources) Chronic tension-type headache; Translations: [Chronic tension-type headache, not intractable] Onset: 05-12-2020 06-22-2023 Chronic Malaise and fatigue (20 sources) Chronic fatigue syndrome; Translations: [Chronic fatigue syndrome] Onset: 09-10-2021 06-22-2023 Chronic Menstrual disorders (20 sources) Irregular menstruation, unspecified; Translations: [Excessive and frequent menstruation with regular cycle] Onset: 09-14-2016 Chronic Miscellaneous mental health disorders (20 sources) Bruxism (teeth grinding); Translations: [Other somatoform disorders] Onset: 05-23-2020 04-08-2023 Chronic Mood disorders (20 sources) Recurrent major depressive episodes, mild ; Translations: [Major depressive disorder, recurrent, mild] Onset: 03-31-2022 04-28-2023 Chronic Nutritional deficiencies (20 sources) Vitamin D deficiency; Translations: [Vitamin D deficiency, unspecified] Onset: 12-05-2017 04-08-2023 Chronic Other connective tissue disease (2 sources) Trochanteric bursitis of left hip; Translations: [Trochanteric bursitis, left hip] 12-07-2024 Episodic Other ear and sense organ disorders (2 sources) Ear sensations - finding; Translations: [Other specified disorders of ear, bilateral] 05-13-2025 Episodic Other ear and sense organ disorders (2 sources) Referred otalgia of right ear; Translations: [Otalgia, right ear] 05-13-2025 Episodic Other nutritional; endocrine; and metabolic disorders (20 sources) Disorder of sulfur-bearing amino acid metabolism; 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, unspecified] Onset: 12-22-2015 04-08-2023 Chronic Other upper respiratory disease (20 sources) Seasonal allergy; Translations: [Other seasonal allergic rhinitis] Onset: 11-25-2016 06-22-2023 Chronic Other upper respiratory infections (3 sources) Acute maxillary sinusitis; Translations: [Acute maxillary sinusitis, unspecified] 12-27-2024 Episodic Otitis media and related conditions (8 sources) Recurrent acute serous otitis media of right middle ear; Translations: [Acute serous otitis media, recurrent, right ear] 09-03-2024 Episodic Past or Other Problems Problem Classification Problem Date Documented Da te Episodic/Chronic Other screening for suspected conditions (not mental disorders or infectious disease) (20 sources) Abnormal findings on diagnostic imaging of breast; Translations: [Other abnormal and inconclusive findings on diagnostic imaging of breast] Onset: 09-22-2021 04-08-2023 Episodic Results Test Name Value Interpretation Reference Range Facility BI MAMMOGRAM SCREENING TOMOS YARY BILATERALon 12-07-2024 BI MAMMOGRAM SCREENING TOMOSYNTHESIS BILATERAL This is a summary report. The complete report is available in the patient's medical record. If you cannot access the medical record, please contact the sending organization for a detailed fax or copy. Examination: BI MAMMOGRAM SCREENING TOMOSYNTHESIS BILATERAL Clinical [...] Mammogram ELECTRONICALLY SIGNED BY: Charles Zaldivar M.D. Normal Not Available IGP,APTIMA HPV,AGE GDLNon AGE GDLN ACOG TESTING Note . [facility] Comment on above: TESTS RESULT FLAG UN ITS REF RANGE LAB Clinician Provided Cytology Information Source.............Cervix;Endocervix No. of containers..01 ThinPrep Vial Age Chanao ACOG Fern... FLAG LEGEND: L-Low Normal,H-High Normal,LL-Alert Low,HH-Alert High <-Panic Low,>-Panic High,A-Abnormal,AA-Critical Abnormal Performed at: [facility] [id number] Linh Baxter MD, HPV APTIMA Negative Negative [facility] Comment on above: This nucleic acid am plification test detects fourteen high- risk HPV types (16,18,31,33,35,39,45,51,52,56,58,59,66,68) without differentiation. Performed at: = - [facility] [id number] Pie Filler: Linh Baxter MD, Phone: [phone] Performed at: [facility] [id number] Pie Filler: Linh Baxter MD, Phone: [phone] IGP, APTIMA HPV, RFX 16/18,45 Note . [facility] Comment on above: TESTS RESULT FLAG UN ITS REF RANGE LAB DIAGNOSIS: 02 NEGATIVE FOR INTRAEPITHELIAL LESION OR MALIGNANCY. THIS SPECIMEN WAS RESCREENED PART OF OUR CAD DRAFTER PROGRAM. Specimen adequacy: 02 Satisfactory for evaluation. No endocervical component is identified. Performed by: 02 Benja Childers Bobbin Washer (ASC) QC reviewed by: 02 Suzette James Bobbin Washer (ASC) . 02 Note: Note 02 The Pap smear is a screening test designed to aid in the detection of premalignant and malignant conditions of the uterine cervix. It is not a diagnostic procedure and should not be used as the sole means of detecting cervical cancer. Both false-positive and false-negative reports do occur. Test Methodology: Note 02 This liquid based ThinPrep(R) pap test was screened with the use of an image guided system. HPV Genotype Reflex Note 02 Criteria not met, HPV Genotype not performed. FLAG LEGEND: L-Low Normal,H-High Normal,LL-Alert Low,HH-Alert High <-Panic Low,>-Panic High,A-Abnormal,AA-Critical Abnormal Performed at: [address] [id number] Linh Baxter MD, BRUSH-SPATULA CERVIX ENDOCERVIX CLINISYFL [facility] PELVIS AND TRANSVAGon US PELVIS AND TRANSVAG EXAMINATION: US PELVIS AND TRANSVAG HISTORY: Irregular periods COMPARISON: No relevant comparison available. FINDINGS: The uterus is normal in size, contour and echotexture measuring 8.6 x 5.6 x 4.2 cm, retroverted. Small amount of fluid identified in the pelvic cul-de-sac likely physiologic The endometrium measures 9.9 mm, normal. The right ovary is normal in appearance measuring 4.3 x 1.7 x 1.8 cm. normal color Doppler flow The left ovary is not visualized IMPRESSION: Nonvisualization of the left ovary, otherwise normal exam Electronically authenticated by: DEBRA CASTILLO Date: 2022-12-16 17:43 Normal [facility] Diagnostic Mammogram, Unilat eral left w/Norris (3D)on 09-24-2021 Diagnostic Mammogram, Unilateral left w/Norris (3D) CLINICAL HISTORY: Diagnostic Mammogram COMPARISON: Dating back to April 02 and 2020 TECHNIQUE: 2D and 3D Tomosynthesis of the left breast was performed. FINDINGS: Breast composition demonstrates scattered fibroglandular densities. Stable nodular dense tissue left upper breast, less conspicuous than on the prior examination six months earlier. No suspicious microcalcifications, asymmetry, architectural distortion, or associated features are present. IMPRESSION: BIRADS 2: Benign mammogram. Recommend resuming yearly mammography Board Certified Radiologist. Accredited by the ACR and FDA. MAMMOGRAPHY IS VERY IMPORTANT TO YOUR HEALTH. THE CURRENT [place] [employer] GUIDELINES RECOMMENDS ANNUAL MAMMOGRAPHY BEGINNING AT AGE 40 THIS FACILITY USES A REMINDER SYSTEM TO ENSURE ALL PATIENTS RECEIVE REMINDER NOTIFICATIONS AT THE APPROPRIATE TIME BASED ON THE RECOMMENDATIONS OF THIS EXAM. Report reported and signed by Nicho Patiño on 09/24/2021 1001 Normal [facility] Industrial Therapist Vital Signs Date Time Vital Sign Value Performing Clinician [place] 05-13-2025 11:31-0400 Body height 160 cm Rosey England MD Work Phone: [facility] 05-13-2025 11:31-0400 Body mass index (BMI) [Ratio] 26.93 kg/m2 Rosey England MD Work Phone: [facility] 05-13-2025 11:31-0400 Body weight 68.95 kg Rosey England MD Work Phone: [facility] 05-13-2025 11:31-0400 Diastolic blood pressure 74 mm[Hg] Rosey England MD Work Phone: [facility] 05-13-2025 11:31-0400 Heart rate 70 /min Rosey England MD Work Phone: [facility] 05-13-2025 11:31-0400 Systolic blood pressure 108 mm[Hg] Rosey England MD Work Phone: [facility] 04-29-2025 07:33-0400 Body height 160 cm Sujit Newby NP Work Phone: [facility] 04-29-2025 07:33-0400 Body mass index (BMI) [Ratio] 26.93 kg/m2 Sujit Newby NP Work Phone: [facility] 04-29-2025 07:33-0400 Body temperature 98.1 [degF] Sujit Fruth LAMINATED PLASTICS ASSEMBLER AND GLUER Work Phone: [facility] 04-29-2025 07:33-0400 Body weight 68.95 kg Sujit Fruth LAMINATED P[employer] ASSEM[employer]ER AND [employer]ER Work Phone: [facility] 04-29-2025 07:33-0400 Diastolic blood pressure 76 mm[Hg] Sujit Fruth LAMINATED P[employer] ASSEM[employer]ER AND GLUER Work Phone: [facility] 04-29-2025 07:33-0400 Heart rate 74 /min Sujit Fruth LAMINATED P[employer] ASSEM[employer]ER AND [employer]UER Work Phone: [facility] 04-29-2025 07:33-0400 SaO2% (BldA) [Mass fraction] 98 % Sujit Fruth L[employer]ATED P[employer] ASSEMBLER AND GLUER Work Phone: [facility] 04-29-2025 07:33-0400 Systolic blood pressure 112 mm[Hg] Sujit Fruth LAMINATED PLAST[employer] ASSEMBLER AND GLUER Work Phone: [facility] 12-27-2024 13:30-0400 Body height 160 cm Pierre Willis LAMINATED PLAST[employer] ASSEM[employer]ER AND GLUER Work Phone: [facility] 12-27-2024 13:30-0400 Body mass index (BMI) [Ratio] 26.57 kg/m2 Pierre Willis LAMINATED P[employer] ASSEM[employer]ER AND GLUER Work Phone: [facility] 12-27-2024 13:30-0400 Body weight 68.04 kg Pierre Willis LAMINATED PLAST[employer] ASSEM[employer]ER AND [employer]ER Work Phone: [facility] 12-27-2024 13:30-0400 Diastolic blood pressure 64 mm[Hg] Pierre Willis LAMINATED P[employer] ASSEM[employer]ER AND [employer]ER Work Phone: [facility] 12-27-2024 13:30-0400 Heart rate 77 /min Pierre Willis LAMINATED P[employer] ASSEM[employer]ER AND [employer]ER Work Phone: [facility] 12-27-2024 13:30-0400 SaO2% (BldA) [Mass fraction] 98 % Pierre Willis LAMINATED P[employer] ASSEM[employer]ER AND [employer]UER Work Phone: [facility] 12-27-2024 13:30-0400 Systolic blood pressure 100 mm[Hg] Pierre Willis LAMINATED PLAST[employer] ASSEMBLER AND GLUER Work Phone: [facility] 12-07-2024 08:08-0400 Body height 160 cm Mar Rine LAMINATED PLAST[employer] ASSEM[employer]ER AND [employer]UER Work Phone: [facility] 12-07-2024 08:08-0400 Body mass index (BMI) [Ratio] 26.85 kg/m2 Mar Rine LAMINATED P[employer] ASSEM[employer]ER AND GLUER Work Phone: [facility] 12-07-2024 08:08-0400 Body temperature 97.5 [degF] Mar Rine LAMINATED P[employer] ASSEM[employer]ER AND [employer]UER Work Phone: [facility] 12-07-2024 08:08-0400 Body weight 68.77 kg Mar Rine LAMINATED P[employer] ASSEM[employer]ER AND [employer]ER Work Phone: [facility] 12-07-2024 08:08-0400 Diastolic blood pressure 62 mm[Hg] Mar Rine LAMINATED P[employer] ASSEM[employer]ER AND GLUER Work Phone: [facility] 12-07-2024 08:08-0400 Heart rate 83 /min Mar Rine LAMIN[employer] P[employer] ASSEM[employer]ER AND [employer]ER Work Phone: [facility] 12-07-2024 08:08-0400 Respiratory rate 18 /min Mar Rine L[employer]INATED P[employer] ASSEM[employer]ER [employer]ER Work Phone: [facility] 12-07-2024 08:08-0400 SaO2% (BldA) [Mass fraction] 99 % Mar Rine LAMIN[employer] P[employer] ASSEM[employer]ER AND [employer]UER Work Phone: [facility] 12-07-2024 08:08-0400 Systolic blood pressure 90 mm[Hg] Mar Rine LAMINATED P[employer] ASSEM[employer]ER [employer]ER Work Phone: [facility] 09-03-2024 08:35-0500 Body height 160 cm Mar Rine LAMINATED PLAST[employer] ASSEM[employer]ER AND [employer]ER Work Phone: [facility] 09-03-2024 08:35-0500 Body mass index (BMI) [Ratio] 26.64 kg/m2 Mar Rine LAMIN[employer] P[employer] AS[employer]ER [employer]ER Work Phone: [facility] 09-03-2024 08:35-0500 Body temperature 98.8 [degF] Mar Rine LAMINATED P[employer] ASSEM[employer]ER AND [employer]UER Work Phone: [facility] 09-03-2024 08:35-0500 Body weight 68.22 kg Mar Rine LAMINATED P[employer] AS[employer]ER AND [employer]ER Work Phone: [facility] 09-03-2024 08:35-0500 Diastolic blood pressure 62 mm[Hg] Mar Rine LAMINATED P[employer] AS[employer]ER AND [employer]ER Work Phone: [facility] 09-03-2024 08:35-0500 Heart rate 88 /min Mar Rine LAMINATED P[employer] AS[employer]ER [employer]ER Work Phone: [facility] 09-03-2024 08:35-0500 Respiratory rate 18 /min Mar Rine LAMINATED P[employer] ASSEM[employer]ER AND [employer]ER Work Phone: [facility] 09-03-2024 08:35-0500 SaO2% (BldA) [Mass fraction] 99 % Mar Rine LAMIN[employer] P[employer] AS[employer]ER Work Phone: [facility] 09-03-2024 08:35-0500 Systolic blood pressure 100 mm[Hg] Mar Rine LAMINATED P[employer] ASSEM[employer]ER AND [employer]ER Work Phone: [facility] 05-28-2024 10:11-0400 Body mass index (BMI) [Ratio] 26.47 kg/m2 Inge Bae PA Work Phone: [facility] 05-28-2024 10:11-0400 Body weight 67.77 kg Inge Glenshaw PA Work Phone: [facility] 05-28-2024 10:11-0400 Diastolic blood pressure 60 mm[Hg] Inge Glenshaw PA Work Phone: [facility] 05-28-2024 10:11-0400 Systolic blood pressure 110 mm[Hg] Inge Glenshaw PA Work Phone: [facility] Healthcare Encounters Encounter Date Encounter Type Care Provider Facility Start: 05-13-2025 End: 05-13-2025 Bobbi flowsoscar England MD Work Phone: [facility] Start: 05-13-2025 End: 05-13-2025 Bobbi England MD Work Phone: [facility] Start: 05-13-2025 End: 05-13-2025 Office outpatient new 45 minutes Rosey England MD Work Phone: [facility] Comment on above: Ear fullness, bilate ral (Primary Dx); Referred otalgia of right ear; ETD (Eustachian tube dysfunction), bilateral Start: 05-13-2025 End: 05-13-2025 ambulatory ROSEY ENGLAND Not Available Start: 05-08-2025 End: 05-08-2025 Telephone encounter Tyra Garcia MA [facility] Comment on above: Medication Question Start: 05-07-2025 End: 05-07-2025 Telephone encounter Tyra Garcia MA [facility] Comment on above: Referral Start: 04-29-2025 End: 04-29-2025 Bamboo flowsheet Sujit E Fruth LAMINATED P[employer] ASSEMBLER AND [employer]UER Work Phone: [facility] Start: 04-29-2025 End: 04-29-2025 Bamboo flowsheet Sujit E Fruth LAMINATED P[employer] ASSEMBLER AND [employer]UER Work Phone: [facility] Start: 04-29-2025 End: 04-29-2025 ambulatory SUJIT E FRUTH Not Available Start: 04-29-2025 End: 04-29-2025 Office outpatient visit 15 minutes Sujit E Fruth L[employer]IN[employer] P[employer] ASSEM[employer]ER [employer]UER Work Phone: [facility] Comment on above: Chronic dysfunction of both eustachian tubes (Primary Dx) Start: 01-10-2025 End: 01-10-2025 ambulatory MAR L RINE Not Available Start: 12-27-2024 End: 12-27-2024 Bamboo flowsheet Pierre Willis LAMINATED P[employer] ASSEMBLER AND GLUER Work Phone: [facility] Start: 12-27-2024 End: 12-27-2024 Bamboo flowsheet Pierre Willis L[employer]ATED P[employer] ASSEM[employer]ER AND [employer]ER Work Phone: [facility] Start: 12-27-2024 End: 12-27-2024 Office outpatient visit 15 minutes Pierre Willis L[employer]INATED P[employer] ASSEM[employer]ER [employer]ER Work Phone: [facility] Comment on above: Acute non-recurrent maxillary sinusitis (Primary Dx); Bronchitis Start: 12-27-2024 End: 12-27-2024 ambulatory PIERRE WILLIS Not Available Start: 12-07-2024 End: 12-07-2024 Bamboo flowsheet Mar L Annae LAMINATED PLAST[employer] ASSEMBLER AND [employer]UER Work Phone: [facility] Start: 12-07-2024 End: 12-07-2024 Bamboo flowsheet Mar L Annae LAMINATED P[employer] ASSEMBLER AND [employer]ER Work Phone: [facility] Start: 12-07-2024 End: 12-07-2024 Patient encounter status Mar L Annae LAMINATED P[employer] ASSEM[employer]ER AND [employer]UER Work Phone: [facility] Work Phone: Start: 12-07-2024 End: 12-07-2024 Periodic preventive med est patient 40-64yrs Mar L Annae LAMINATED P[employer] ASSEMBLER AND GLUER Work Phone: [facility] Comment on above: Wellness examination (Primary Dx); JESSENIA (generalized anxiety disorder) (CMS/HCC); Mild episode of recurrent major depressive disorder (HCC) (CMS/HCC); Seasonal allergies; Vitamin D deficiency; Other screening mammogram; Chronic tension-type headache, not intractable; Chronic fatigue syndrome; PVC (premature ventricular contraction); Bruxism (CMS/HCC); Trochanteric bursitis of left hip; Dysuria Start: 12-07-2024 End: 12-07-2024 ambulatory MAR Flavia HAGAN Not Available Start: 09-03-2024 End: 09-03-2024 Bamboo flowsheet Mar L Annae LAMINATED P[employer] ASSEMBLER AND [employer]ER Work Phone: [facility] Start: 09-03-2024 End: 09-03-2024 Bamboo flowsheet Mar L Rine LAMINATED P[employer] ASSEMBLER AND GLUER Work Phone: [facility] Start: 09-03-2024 End: 09-03-2024 Office outpatient visit 25 minutes Mar Flavia Castilloe LAMINATED P[employer] ASSEMBLER AND GLUER Work Phone: [facility] Comment on above: JESSENIA (generalized anx iety disorder) (CMS/HCC) (Primary Dx); Recurrent acute serous otitis media of right ear; Diabetes mellitus screening; Chronic fatigue syndrome; Other screening mammogram; Screening for diabetes mellitus (DM); Screening, anemia, deficiency, iron; Screening, lipid; Dysuria; Vitamin D deficiency; Wellness examination Start: 09-03-2024 End: 09-03-2024 Patient encounter status Mar Hagan L[employer]IN[employer] P[employer] ASSEM[employer]ER AND [employer]UER Work Phone: [facility] Start: 09-03-2024 End: 09-03-2024 ambulatory MAR HAGAN Not Available Start: 05-28-2024 End: 05-28-2024 Bamboo flowsheet Inge DICKINSON Work Phone: [facility] Start: 05-28-2024 End: 06-04-2024 Bamboo flowsheet Inge DICKINSON Work Phone: [facility] Start: 05-28-2024 End: 06-04-2024 Clinisync Result Encounter Inge DICKINSON Work Phone: [facility] External Department Unsolicited Start: 05-28-2024 End: 05-28-2024 Patient encounter procedure Inge DICKINSON Work Phone: [facility] Healthcare Work Phone: Start: 05-28-2024 End: 05-28-2024 Periodic preventive med est patient 40-64yrs Inge DICKINSON Work Phone: [facility] Comment on above: Well woman exam with routine gynecological exam Start: 05-28-2024 End: 05-28-2024 ambulatory INGE BAE Not Available Start: 12-16-2022 End: 12-17-[address] DEBRA CASTILLO Facility:[facility] Procedures Date Procedure Procedure Detail Performing Clinician Start: 01-10-2025 Mammography Sujit fritz [employer] AS[employer]ER Work Phone: Start: 05-28-2024 IGP,APTIMA HPV,AGE GDLN Inge DICKINSON Work Phone: Start: 04-06-2024 Mammography Inge DICKINSON Work Phone: Start: 05-19-2023 Microscopic observat ion [Identifier] in Cervix by Cyto stain Inge DICKINSON Work Phone: Plan of Treatment Date Care Activity Detail Author Start: 05-19-2026 Screening for malign ant neoplasm of cervix Pap Smear [facility] Start: 02-11-2026 Influenza vaccination Influenza Vacc ine (#1) [facility] Comment on above: Postponed from 04/15 (Patient Refused) Start: 01-10-2026 Screening for malign ant neoplasm of breast Mammogram [facility] Start: 08-28-2025 Screening for malign ant neoplasm of cervix [facility] Start: 05-27-2025 End: 05-27-2025 Patient encounter procedure [facility] Start: 05-13-2025 End: 05-13-2025 Patient encounter procedure [facility] Comment on above: Arrived Start: 04-15-2025 Influenza vaccination Influenza Vacc ine (#1) [facility] Start: 04-06-2025 Screening for malign ant neoplasm of breast Mammogram [facility] Start: 12-27-2024 End: 12-27-2024 Patient encounter procedure 12/27/2024 1:30 PM EDT Office Visit DIANA ARELLANO [address] [place] [address] Pierre Willis, [employer] [address] [place] [address] [facility] Comment on above: Arrived Start: 12-07-2024 End: 12-07-2024 [facility]: Other screening mamm ogram (Primary Dx); Wellness examination; Dysuria; JESSENIA (generalized anxiety disorder) (CMS/HCC); Seasonal allergies; Mild episode of recurrent major depressive disorder (HCC) (CMS/HCC); Vitamin D deficiency; Chronic tension-type headache, not intractable; Chronic fatigue syndrome; PVC (premature ventricular contraction); Bruxism (CMS/HCC) Start: 10-04-2024 End: 11-01-2025 MG Breast - bilateral Screening Bilateral screening mammogram Imaging Today Other screening mammogram Expected: 10/04/2024 (Approximate), Expires: 11/01/2025 [facility] Work Phone: Comment on above: Expected: 10/04/2024 (Approximate), Expires: 11/01/2025 Start: 09-03-2024 End: 09-03-2025 25-hydroxyvitamin D3 [Mass/volume] in Serum or Plasma Vitamin D 25 hydroxy Lab Routine Vitamin D deficiency Expected: 09/03/2024 (Approximate), Expires: 09/03/2025 [facility] Comment on above: Expected: 09/03/2024 (Approximate), Expires: 09/03/2025 Start: 09-03-2024 End: 09-03-2025 CBC panel - Blood by Automated count CBC Lab Routine Screening, anemia, deficiency, iron Wellness examination Expected: 09/03/2024 (Approximate), Expires: 09/03/2025 [facility] Comment on above: Expected: 09/03/2024 (Approximate), Expires: 09/03/2025 Start: 09-03-2024 End: 09-03-2025 Comprehensive metabolic 2000 panel - Serum or Plasma Comprehensive metabolic panel Lab Routine Diabetes mellitus screening Wellness examination Expected: 09/03/2024 (Approximate), Expires: 09/03/2025 [facility] Comment on above: Expected: 09/03/2024 (Approximate), Expires: 09/03/2025 Start: 09-03-2024 End: 09-03-2025 Hemoglobin A1c/Hemoglobin.total in Blood Hemoglobin A1c Lab Routine Diabetes mellitus screening Expected: 09/03/2024 (Approximate), Expires: 09/03/2025 [facility] Comment on above: Expected: 09/03/2024 (Approximate), Expires: 09/03/2025 Start: 09-03-2024 End: 09-03-2025 Lipid 1996 panel - Serum or Plasma Lipid panel Lab Routine Screening, lipid Wellness examination Expected: 09/03/2024 (Approximate), Expires: 09/03/2025 [facility] Comment on above: Expected: 09/03/2024 (Approximate), Expires: 09/03/2025 Start: 09-03-2024 End: 09-03-2025 TSH W/REFLEX TO FT4 TSH W/REFLEX TO FT4 Lab Routine Screening, lipid Expected: 09/03/2024 (Approximate), Expires: 09/03/2025 [facility] Comment on above: Expected: 09/03/2024 (Approximate), Expires: 09/03/2025 Start: 09-03-2024 End: 09-03-2025 Urinalysis complete panel - Urine Urinalysis with reflex microscopic Lab Routine Dysuria Wellness examination Expected: 09/03/2024 (Approximate), Expires: 09/03/2025 [facility] Comment on above: Expected: 09/03/2024 (Approximate), Expires: 09/03/2025 Start: 09-03-2024 End: 09-03-2024 Patient encounter procedure 09/03/2024 8:30 AM EST Office Visit [facility] [address] [place] [address] Mar Hagan NP [address] [place] [address] Diabetes mellitus screening [facility] Comment on above: Diabetes mellitus sc reening Start: 05-28-2024 End: 05-28-2024 Patient encounter procedure 05/28/2024 10:00 AM EDT Office Visit [facility] [address] [place] [address] Inge Bae PA [address] [place] [address] Arrived [facility] Comment on above: Arrived Start: 04-15-2024 Influenza vaccination Influenza Vacc ine (#1) [facility] THIN PREP TIS PAP AN D HR HPV DNA THIN PREP TIS PAP AND HR HPV DNA Pathology and Cytology Routine Well woman exam with routine gynecological exam Ordered: 05/28/2024 [facility] Work Phone: Comment on above: Ordered: 05/28/2024 Immunizations Immunization Date Immunization Notes Care Provider [facility] 05-28-2024 influenza, injectabl e, madin bob canine kidney, preservative free Pierre Willis [employer] Work Phone: [facility] 05-28-2024 influenza virus vacc ine, unspecified formulation Sujit Newby [employer] Work Phone: [facility] 06-24-2023 influenza, injectabl e, quadrivalent, preservative free Inge DICKINSON Work Phone: [facility] 06-24-2023 influenza virus vacc ine, unspecified formulation Inge Rebekah PA Work Phone: [facility] 06-25-2022 influenza, injectabl e, quadrivalent, preservative free Inge Glenshaw PA Work Phone: [facility] 05-31-2019 influenza, injectabl e, quadrivalent, preservative free Inge Rebekah PA Work Phone: [facility] 06-07-2018 influenza, injectabl e, quadrivalent, contains preservative Inge Reebkah PA Work Phone: [facility] 06-30-2016 influenza, injectabl e, quadrivalent, contains preservative Inge Rebekah PA Work Phone: [facility] 05-19-2016 influenza, injectabl e, quadrivalent, preservative free Inge Rebekah PA Work Phone: [facility] Payers Date Payer Category Payer [facility] [employer] [id number] 1980 Unknown [id number] 1980 Unknown [id number] 1980 Unknown [id number] 1980 Unknown [id number] [id number] 1980 Unknown [id number] [id number] 1980 Unknown [id number] [id number] 1980 Unknown [id number] 1980 Unknown [id number] 1959 Unknown [id number] Social History Date Type Detail Facility Start: 04-08-2023 Tobacco smoking stat [facility] Never smoked tobacco [facility] Start: 04-08-2023 Tobacco use and exposure Smoke less tobacco non-user [facility] Start: 05-28-2024 End: 05-13-2025 Alcoholic beverage intake Lifetime non-drinker (finding) [facility] Start: 02-09-2024 End: 12-07-2024 History of Social function [facility] Start: 02-09-2024 End: 12-07-2024 Tobacco use panel [facility] Start: 02-16-2023 Alcohol Comment caffeine: yes [facility] Start: 1980 Sex assigned at Not on file N [facility] Functional Status Date Assessment Result Facility 12-07-2024 Patient Health [facility] ionnaire 2 item (PHQ-2) [Reported] [facility] Clinical Notes 05-28-2024 to 05-13-2025 Rosey England MD - 05/13/2025 11:30 AM EDTTelephone Encounter - Mar Hagan NP - 05/08/2025 12:05 PM EDTTelephone Encounter - Mar Hagan NP - 05/08/2025 12:05 PM EDTPatient Instructions Note Date & Type Note Facility 05-13-2025 History of Presen t illness Narrative Subjective Patient ID: Christel Weiss is a 44 y.o. female who presents for Ear Problem Pt reports a 18-24 mo h/o RT ear fullness. Pt told she had OME. Gets shooting pain in the RT ear. Tx with steroids periodically. Pt has severe bruxism and wears an appliance day and night. Has seen a TMJ specialist in the past Review of Systems [...] History: Procedure Laterality Date ENDOMETRIAL ABLATION 01/27/2023 Albreto VAGINAL DELIVERY childbirth x2 WISDOM TOOTH EXTRACTION [...] fullness as well. documented in this encounter [facility] 05-08-2025 Telephone encounter Note Form atting of this note might be different from the original. Doxycycline sent to the pharmacy. Emessage to pt [facility] 05-08-2025 Miscellaneous Notes Formattin g of this note might be different from the original. Doxycycline sent to the pharmacy. Emessage to pt PT called in asking if we can send something in for her as she believes she has a sinus infection, she was just in and seen REF last week. Pt mentioned she is having head fullness, green snot, ears are plugged, face is sore and puffy. PT is scheduled with ENT due to her ongoing ear issues Tuesday05/13/2025. Please send meds to [facility]. documented in this encounter [facility] 05-08-2025 Telephone encounter Note Form atting of this note might be different from the original. PT called in asking if we can send something in for her as she believes she has a sinus infection, she was just in and seen REF last week. Pt mentioned she is having head fullness, green snot, ears are plugged, face is sore and puffy. PT is scheduled with ENT due to her ongoing ear issues Tuesday05/13/2025. Please send meds to [facility]. [facility] 05-07-2025 Telephone encounter Note Form atting of this note might be different from the original. Referral sent as requested. [facility] 05-07-2025 Miscellaneous Notes Formattin g of this note might be different from the original. Referral sent as requested. PT called in asking if she can get a referral to ENT Dr. England due to her recent visits with fluid in her RT ear and it being an ongoing issue. documented in this encounter [facility] 05-07-2025 Telephone encounter Note Form atting of this note might be different from the original. PT called in asking if she can get a referral to ENT Dr. England due to her recent visits with fluid in her RT ear and it being an ongoing issue. [facility] 04-29-2025 History of Presen t illness Narrative Images from the original note were not included. Christel Weiss is a 44 y.o. female presents with chief complaint of Ear Fullness HPI: Ear Fullness Associated symptoms include headaches. [employer]; right ear plugged. +headache. Denies dizziness or fever. SUBJECTIVE: MEDICATIONS: Current Outpatient Medications Medication Instructions Ascorbic Acid (Vitamin C) 500 MG capsule 1 capsule azithromycin (Zithromax) 250 MG tablet Take 2 tablets day one then 1 tablet daily Bacillus Coagulans-Inulin (PROBIOTIC-PREBIOTIC PO) Take by mouth Calcium Carb-Cholecalciferol (CALCIUM 500 + D PO) 1 tablet, Daily cholecalciferol (Vitamin D-3) 50 MCG (2000 UT) tablet Daily fluticasone (Flonase) 50 MCG/ACT nasal spray 2 sprays, Each Nostril, Daily, Shake gently. Before first use, prime pump. After use, clean tip and replace cap. predniSONE (Deltasone) 20 MG tablet Take 3 tablets for 2 days THEN 2 tablets for 2 days THEN 1 tablet for 2 days ALLERGIES: Allergies Allergen Reactions Amoxicillin-Pot Clavulanate GI intolerance Other Reaction(s): stomach upset Sulfa Antibiotics Unknown Other Reaction(s): childhood reaction Sulfamethoxazole-Trimethoprim Unknown Other Reaction(s): unknown Wound Dressing Adhesive Rash Other Reaction(s): rash SURGICAL HISTORY: Past Surgical History: Procedure Laterality Date ENDOMETRIAL ABLATION 01/27/2023 Alberto VAGINAL DELIVERY childbirth x2 WISDOM TOOTH EXTRACTION wisdom teeth x4 FAMILY HISTORY: Family History Problem Relation Name Age of Onset Hypothyroidism Mother Diabetes Father Heart disease Father Testicular cancer Father No Known Problems Sister No Known Problems Brother 2 brothers Cancer Paternal Grandmother Heart disease Paternal Grandmother Heart disease Paternal Grandfather Cancer Paternal Grandfather No Known Problems Daughter No Known Problems Son Melanoma Neg Hx SOCIAL HISTORY: Social History Tobacco Use Smoking status: Never Smokeless tobacco: Never Vaping Use Vaping status: Never Used Substance Use Topics Alcohol use: Never Comment: caffeine: yes Drug use: Never Depression: Not at risk (12/07/2024) PHQ-2 PHQ-2 Score: 0 REVIEW OF SYMPTOMS: Review of Systems Constitutional: Negative. HENT: Positive for ear pain. Eyes: Negative. Respiratory: Negative. Cardiovascular: Negative. Gastrointestinal: Negative. Genitourinary: Negative. Musculoskeletal: Negative. Skin: Negative. Neurological: Positive for headaches. Psychiatric/Behavioral: Negative. Hematological: Negative. Endocrine: Negative. Allergic/Immunologic: Negative. OBJECTIVE: Visit Vitals BP 112/76 (BP Location: Left arm, Patient Position: Sitting, BP Cuff Size: Adult) Pulse 74 Temp 98.1 F (Tympanic) Ht 5' 3 Wt 152 lb SpO2 98% BMI 26.93 kg/m OB Status Ablation Smoking Status Never BSA 1.75 m Physical Exam Constitutional: Appearance: Normal appearance. HENT: Head: Normocephalic and atraumatic. Right Ear: Ear canal and external ear normal. Left Ear: Ear canal and external ear normal. Ears: Comments: Bilateral TM with effusion Nose: Nose normal. Mouth/Throat: Mouth: Mucous membranes are moist. Pharynx: Oropharynx is clear. Cardiovascular: Rate and Rhythm: Normal rate and regular rhythm. Pulses: Normal pulses. Heart sounds: Normal heart sounds. Pulmonary: Effort: Pulmonary effort is normal. Breath sounds: Normal breath sounds. Lymphadenopathy: Cervical: No cervical adenopathy. Skin: General: Skin is warm and dry. Neurological: General: No focal deficit present. Mental Status: She is alert and oriented to person, place, and time. Mental status is at baseline. Psychiatric: Mood and Affect: Mood normal. Behavior: Behavior normal. Thought Content: Thought content normal. Judgment: Judgment normal. ASSESSMENT AND PLAN: Assessment/Plan Problem List Items Addressed This Visit None Visit Diagnoses Chronic dysfunction of both eustachian tubes - Primary Relevant Medications predniSONE (Deltasone) 20 MG tablet fluticasone (Flonase) 50 MCG/ACT nasal spray Medication as directed. Consider ENT referral. Pt to call if she desires this. Reviewed patient past medical and surgical history. Family medical history along with allergies and current medications with patient at today's appointment. Follow up may appt.. documented in this encounter [facility] 12-27-2024 History of Presen t illness Narrative Images from the original note were not included. Christel Weiss is a 44 y.o. female presents with chief complaint of No chief complaint on file. HPI: HPI Patient Reported S/S to Nurse: Reviewed HDH- Cough present x 1 week C/o ears feel plugged and itchy, nonproductive cough, PND, sore throat, sinus pressure, nasal congestion Denies fever, n/v/d Took zyrtec last night LABS- 11/2023, open orders from 08/2024 PAP- 05/28/2024- NILM; HPV negative MAMMO- 09/2023, rt dx mammo 03/2024; open order from 11/2024 WELLNESS- 11/2024 FINAL TESTER- Dr Hanley DENTIST- Dr Darling MACHINE PACK ASSEMBLER- Dr Arriaga SUBJECTIVE: MEDICATIONS: Current Outpatient Medications Medication Instructions Ascorbic Acid (Vitamin C) 500 MG capsule 1 capsule azithromycin (Zithromax) 250 MG tablet Take 2 tablets day one then 1 tablet daily Bacillus Coagulans-Inulin (PROBIOTIC-PREBIOTIC PO) Take by mouth Calcium Carb-Cholecalciferol (CALCIUM 500 + D PO) 1 tablet, Daily cholecalciferol (Vitamin D-3) 50 MCG (2000 UT) tablet Daily predniSONE (Deltasone) 20 MG tablet Take 3 tablets for 2 days THEN 2 tablets for 2 days THEN 1 tablet for 2 days ALLERGIES: Allergies Allergen Reactions Amoxicillin-Pot Clavulanate GI intolerance Other Reaction(s): stomach upset Sulfa Antibiotics Unknown Other Reaction(s): childhood reaction Sulfamethoxazole-Trimethoprim Unknown Other Reaction(s): unknown Wound Dressing Adhesive Rash Other Reaction(s): rash SURGICAL HISTORY: Past Surgical History: Procedure Laterality Date ENDOMETRIAL ABLATION 01/27/2023 Alberto VAGINAL DELIVERY childbirth x2 WISDOM TOOTH EXTRACTION wisdom teeth x4 FAMILY HISTORY: Family History Problem Relation Name Age of Onset Hypothyroidism Mother Diabetes Father Heart disease Father Testicular cancer Father No Known Problems Sister No Known Problems Brother 2 brothers Cancer Paternal Grandmother Heart disease Paternal Grandmother Heart disease Paternal Grandfather Cancer Paternal Grandfather No Known Problems Daughter No Known Problems Son Melanoma Neg Hx SOCIAL HISTORY: Social History Tobacco Use Smoking status: Never Smokeless tobacco: Never Vaping Use Vaping status: Never Used Substance Use Topics Alcohol use: Never Comment: caffeine: yes Drug use: Never Depression: Not at risk (12/07/2024) PHQ-2 PHQ-2 Score: 0 REVIEW OF SYMPTOMS: Review of Systems Constitutional: Negative for activity change, appetite change, chills, diaphoresis, fatigue and fever. HENT: Positive for congestion, postnasal drip, sinus pressure and sore throat. Negative for ear discharge, ear pain, hearing loss, trouble swallowing and voice change. Respiratory: Positive for cough. Negative for chest tightness, shortness of breath and wheezing. Cardiovascular: Negative for chest pain, palpitations and leg swelling. Gastrointestinal: Negative for constipation, diarrhea, nausea and vomiting. Psychiatric/Behavioral: Negative. OBJECTIVE: Visit Vitals BP 100/64 Pulse 77 Ht 5' 3 Wt 150 lb SpO2 98% BMI 26.57 kg/m OB Status Ablation Smoking Status Never BSA 1.74 m Physical Exam Vitals and nursing note reviewed. Constitutional: Appearance: Normal appearance. She is ill-appearing. HENT: Head: Normocephalic and atraumatic. Right Ear: A middle ear effusion is present. There is no impacted cerumen. Left Ear: A middle ear effusion is present. There is no impacted cerumen. Mouth/Throat: Pharynx: Posterior oropharyngeal erythema present. No oropharyngeal exudate. Eyes: General: Allergic shiner present. Right eye: No discharge. Left eye: No discharge. Cardiovascular: Rate and Rhythm: Normal rate and regular rhythm. Pulses: Normal pulses. Heart sounds: Normal heart sounds. Pulmonary: Effort: Pulmonary effort is normal. No respiratory distress. Breath sounds: No stridor. Examination of the right-upper field reveals wheezing. Examination of the left-upper field reveals wheezing. Wheezing present. No decreased breath sounds, rhonchi or rales. Comments: Anterior inspiratory wheezing Chest: Chest wall: No tenderness. Lymphadenopathy: Cervical: Cervical adenopathy present. Right cervical: Superficial cervical adenopathy present. Left cervical: Posterior cervical adenopathy present. Skin: General: Skin is warm and dry. Neurological: General: No focal deficit present. Mental Status: She is alert and oriented to person, place, and time. Mental status is at baseline. Sensory: No sensory deficit. Motor: No weakness. Coordination: Coordination normal. Gait: Gait normal. Psychiatric: Mood and Affect: Mood normal. Behavior: Behavior normal. Thought Content: Thought content normal. Judgment: Judgment normal. ASSESSMENT AND PLAN: Assessment/Plan Diagnoses and all orders for this visit: Acute non-recurrent maxillary sinusitis - azithromycin (Zithromax) 250 MG tablet; Take 2 tablets day one then 1 tablet daily Bronchitis - predniSONE (Deltasone) 20 MG tablet; Take 3 tablets for 2 days THEN 2 tablets for 2 days THEN 1 tablet for 2 days Fluids Rest humidifier Follow up for Next scheduled follow-up 05/27/25. documented in this encounter [facility] 12-07-2024 History of Presen t illness Narrative Images from the original note were not included. Christel Weiss is a 44 y.o. 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 She reports experiencing hip pain, which she has been managing through stretching exercises. The pain is described as a numbness that intensifies with prolonged sitting, such as during car rides. Her work schedule involves alternating between sitting and standing, depending on the day. She has attempted to alleviate the pain with heat application, which provided temporary relief. Tightness in her legs and hips is also reported, with soreness the day after stretching. Efforts have been made to increase water intake, and she has resumed taking apple cider vinegar, which she believes helps with inflammation. Dietary changes include incorporating more protein, such as chicken, meat, protein shakes, and Georgian yogurt, as well as vegetables. Daily vitamin D supplements are taken due to consistently low levels. A probiotic supplement is used, and she is considering trying collagen protein peptide. Diminished hearing in one ear has been experienced for the past 2 years, attributed to fluid accumulation. Steroids have been used for this condition. No daily disturbances are reported due to this issue. Occasional headaches are managed with the use of glasses and Aleve. Mild nasal congestion was experienced earlier this week. No chest pain, shortness of breath, heartburn, or indigestion is reported. Bowel movements are not regular, but fiber intake has been monitored for the past 6 months to a year. Significant stress at work due to staffing issues is reported, leading to fatigue after returning home. Consideration is being given to starting magnesium supplements. SUBJECTIVE: MEDICATIONS: Current Outpatient Medications Medication Instructions Ascorbic Acid (Vitamin C) 500 MG capsule 1 capsule Bacillus Coagulans-Inulin (PROBIOTIC-PREBIOTIC PO) Take by mouth Calcium Carb-Cholecalciferol (CALCIUM 500 + D PO) 1 tablet, Daily cholecalciferol (Vitamin D-3) 50 MCG (1999) tablet Daily ALLERGIES: Allergies Allergen Reactions Amoxicillin-Pot Clavulanate GI intolerance Other Reaction(s): stomach upset Sulfa Antibiotics Unknown Other Reaction(s): childhood reaction Sulfamethoxazole-Trimethoprim Unknown Other Reaction(s): unknown Wound Dressing Adhesive Rash Other Reaction(s): rash SURGICAL HISTORY: Past Surgical History: Procedure Laterality Date ENDOMETRIAL ABLATION 01/27/2023 Alberto VAGINAL DELIVERY childbirth x2 WISDOM TOOTH EXTRACTION wisdom teeth x4 FAMILY HISTORY: Family History Problem Relation Name Age of Onset Hypothyroidism Mother Diabetes Father Heart disease Father Testicular cancer Father No Known Problems Sister No Known Problems Brother 2 brothers Cancer Paternal Grandmother Heart disease Paternal Grandmother Heart disease Paternal Grandfather Cancer Paternal Grandfather No Known Problems Daughter No Known Problems Son Melanoma Neg Hx SOCIAL HISTORY: Social History Tobacco Use Smoking status: Never Smokeless tobacco: Never Vaping Use Vaping status: Never Used Substance Use Topics Alcohol use: Never Comment: caffeine: yes Drug use: Never Depression: Not at risk (12/07/2024) PHQ-2 PHQ-2 Score: 0 REVIEW OF SYMPTOMS: Review of Systems Constitutional: Negative for activity change, appetite change and fever. HENT: Negative for hearing loss, rhinorrhea and sore throat. Eyes: Negative for visual disturbance. Respiratory: Negative for cough and wheezing. Cardiovascular: Negative for chest pain, palpitations and leg swelling. Gastrointestinal: Negative for abdominal pain and blood in stool. Genitourinary: Negative for dysuria and flank pain. Musculoskeletal: Positive for arthralgias. See hpi re left hip Skin: Negative. Neurological: Negative for dizziness, syncope and light-headedness. Psychiatric/Behavioral: Negative. Hematological: Negative for adenopathy. Does not bruise/bleed easily. Endocrine: Negative for polydipsia. Allergic/Immunologic: Positive for environmental allergies. Negative for food allergies. I have reviewed and reconciled the history, allergies, family history, social history, and the medication list with the patient today. OBJECTIVE: Visit Vitals BP 90/62 (BP Location: Left arm, Patient Position: Sitting, BP Cuff Size: Adult) Pulse 83 Temp 97.5 F (Tympanic) Resp 18 Ht 5' 3 Wt 151 lb 9.6 oz SpO2 99% BMI 26.85 kg/m OB Status Ablation Smoking Status Never BSA 1.75 m Physical Exam HENT: Head: Normocephalic. Right Ear: Tympanic membrane normal. Left Ear: Tympanic membrane normal. Nose: Nose normal. Mouth/Throat: Mouth: Mucous membranes are moist. Pharynx: No posterior oropharyngeal erythema. Eyes: Pupils: Pupils are equal, round, and reactive to light. Neck: Vascular: No carotid bruit. Cardiovascular: Rate and Rhythm: Normal rate and regular rhythm. Pulses: Normal pulses. Heart sounds: Normal heart sounds. No murmur heard. Pulmonary: Effort: Pulmonary effort is normal. No respiratory distress. Abdominal: General: Bowel sounds are normal. Palpations: Abdomen is soft. There is no mass. Hernia: No hernia is present. Musculoskeletal: General: Normal range of motion. Cervical back: Normal range of motion. Comments: SI joints are nontender bilat Very tender over the lateral trochanter of the left hip Lymphadenopathy: Cervical: No cervical adenopathy. Skin: General: Skin is warm and dry. Capillary Refill: Capillary refill takes less than 2 seconds. Neurological: General: No focal deficit present. Mental Status: She is alert. Psychiatric: Mood and Affect: Mood normal. Comments: Alert and interactive Wt up 1 pound She has full lab on deck ASSESSMENT AND PLAN: Assessment/Plan Diagnoses and all orders for this visit: Wellness examination Comments: resistance training, increase protein in diet Orders: - Urinalysis with reflex microscopic JESSENIA (generalized anxiety disorder) (CMS/HCC) Comments: good control at this time, keep exercising Mild episode of recurrent major depressive disorder (HCC) (CMS/HCC) Comments: doing well at this time Seasonal allergies Comments: good control at this time Vitamin D deficiency Comments: continue the supplement Other screening mammogram Comments: schedule for mammo Orders: - Bilateral screening mammogram with tomosynthesis Chronic tension-type headache, not intractable Comments: stable at this time Chronic fatigue syndrome Comments: improved slightly PVC (premature ventricular contraction) Comments: palpitations Bruxism (CMS/HCC) Trochanteric bursitis of left hip Comments: do the exercises, will refer to PT if no better Dysuria Comments: for lab purpose only Orders: - Urinalysis with reflex microscopic Follow up in about 6 months (around 06/08/2025) for recheck in 6 mo. documented in this encounter [facility] 12-07-2024 Instructions Mar Hagan NP - 12/07/2024 8:00 AM EDT 80-100 oz of water per day Add in some resistance training to the 150 min per week of exercise 25 grams of protein per meal Increase the fiber in diet, add in 2 tablespoons of christian seeds per day, start slow Consider daily kiwi to help with constipation Push the veggies Do the stretches for the left hip bursitis , call if no better documented in this encounter [facility] 09-03-2024 History of Presen t illness Narrative Christel Weiss is a 44 y.o. female presents with chief complaint of Follow-up HPI: Here for routine follow up appt Has ongoing pressure in her rt ear Sleeps on her rt side secondary to the chronic bursitis in her left hip She has used allergy meds, chewed gum, this is a frequent issue Her kids have had some tubes placed per dr england w/ relief of sx She is taking apple cider vinegar and drinking water in the am Has stopped soda, one crystal light in the am SUBJECTIVE: MEDICATIONS: Current Outpatient Medications Medication Instructions Ascorbic Acid (Vitamin C) 500 MG capsule 1 capsule Bacillus Coagulans-Inulin (PROBIOTIC-PREBIOTIC PO) Take by mouth Calcium Carb-Cholecalciferol (CALCIUM 500 + D PO) 1 tablet, Daily ALLERGIES: Allergies Allergen Reactions Amoxicillin-Pot Clavulanate GI intolerance Other Reaction(s): stomach upset Sulfa Antibiotics Unknown Other Reaction(s): childhood reaction Sulfamethoxazole-Trimethoprim Unknown Other Reaction(s): unknown Wound Dressing Adhesive Rash Other Reaction(s): rash SURGICAL HISTORY: Past Surgical History: Procedure Laterality Date ENDOMETRIAL ABLATION 01/27/2023 Alberto VAGINAL DELIVERY childbirth x2 WISDOM TOOTH EXTRACTION wisdom teeth x4 FAMILY HISTORY: Family History Problem Relation Name Age of Onset Hypothyroidism Mother Diabetes Father Heart disease Father Testicular cancer Father No Known Problems Sister No Known Problems Brother 2 brothers Cancer Paternal Grandmother Heart disease Paternal Grandmother Heart disease Paternal Grandfather Cancer Paternal Grandfather No Known Problems Daughter No Known Problems Son Melanoma Neg Hx SOCIAL HISTORY: Social History Tobacco Use Smoking status: Never Smokeless tobacco: Never Vaping Use Vaping status: Never Used Substance Use Topics Alcohol use: Never Comment: caffeine: yes Drug use: Never Depression: Not at risk (02/09/2024) PHQ-2 PHQ-2 Score: 0 REVIEW OF SYMPTOMS: Review of Systems Constitutional: Negative for activity change. HENT: Positive for ear pain. Eyes: Negative for visual disturbance. Respiratory: Negative for cough and wheezing. Cardiovascular: Negative for chest pain and leg swelling. Gastrointestinal: Negative for abdominal pain. Genitourinary: Negative for difficulty urinating. Musculoskeletal: Negative for arthralgias. Neurological: Negative for weakness. Psychiatric/Behavioral: Negative. Allergic/Immunologic: Negative for environmental allergies. OBJECTIVE: Visit Vitals BP 100/62 (BP Location: Right arm, Patient Position: Sitting, BP Cuff Size: Adult) Pulse 88 Temp 98.8 F (Tympanic) Resp 18 Ht 5' 3 Wt 150 lb 6.4 oz SpO2 99% BMI 26.64 kg/m OB Status Ablation Smoking Status Never BSA 1.74 m Physical Exam Constitutional: Appearance: Normal appearance. HENT: Head: Normocephalic. Ears: Comments: Bilat serous otitis, tms color wnl, effusions are clear Eyes: Pupils: Pupils are equal, round, and reactive to light. Cardiovascular: Rate and Rhythm: Normal rate and regular rhythm. Pulses: Normal pulses. Heart sounds: Normal heart sounds. Pulmonary: Effort: Pulmonary effort is normal. Breath sounds: Normal breath sounds. Musculoskeletal: Cervical back: Normal range of motion and neck supple. Skin: General: Skin is warm and dry. Neurological: General: No focal deficit present. Mental Status: She is alert. Psychiatric: Mood and Affect: Mood normal. Comments: Alert and interactive ASSESSMENT AND PLAN: Assessment/Plan Diagnoses and all orders for this visit: JESSENIA (generalized anxiety disorder) ([facility]) Comments: fairly good control , consider magnesium supplement at hs Recurrent acute serous otitis media of right ear Comments: consider see dr england for consult, she will call for referral when she desires Diabetes mellitus screening Comments: for lab purpose only Orders: - Urinalysis with reflex microscopic - Comprehensive metabolic panel; Future - Hemoglobin A1c; Future Chronic fatigue syndrome Comments: doing well on current supplements Other screening mammogram Comments: appears due for screening mammo in sep Orders: - Bilateral screening mammogram; Future Screening for diabetes mellitus (DM) Comments: for lab purpose only Screening, anemia, deficiency, iron Comments: for lab purpose only Orders: - CBC; Future Screening, lipid Comments: for lab purpose only Orders: - Lipid panel; Future - TSH W/REFLEX TO FT4; Future Dysuria Comments: for lab purpose only Orders: - Urinalysis with reflex microscopic; Future Vitamin D deficiency Comments: for lab purpose only Orders: - Vitamin D 25 hydroxy; Future Wellness examination Comments: for lab purpose only Orders: - Comprehensive metabolic panel; Future - CBC; Future - Lipid panel; Future - Urinalysis with reflex microscopic; Future Follow up in about 3 months (around 12/02/2024) for 3-4 mo wellness , fasting labs prior. documented in this encounter [facility] 09-03-2024 Instructions Mar Hagan NP - 09/03/2024 8:30 AM EST ..overnight oat basic recipe: half cup each of old fashioned oats, milk, slovak yogurt, berries of choice. add 1-2 tsp maple syrup or honey to leonor and dash of vanilla. slowly add christian seeds to max of 2 tablespoons per day. Magnesium glycinate 100-200mg at bedtime, topical preferable 3-4 mo wellness , fasting labs prior documented in this encounter [facility] 05-28-2024 History of Presen t illness Narrative Reason for Appointment: Patient ID: Christel Weiss is a 43 y.o. female who presents for Well Women Visit Patient presents today for Annual Exam. MEDICATIONS Current Outpatient Medications Medication Instructions Ascorbic Acid (Vitamin C) 500 MG capsule 1 capsule Bacillus Coagulans-Inulin (PROBIOTIC-PREBIOTIC PO) Take by mouth Calcium Carb-Cholecalciferol (CALCIUM 500 + D PO) 1 tablet, Daily ALLERGIES Allergies Allergen Reactions Amoxicillin-Pot Clavulanate GI intolerance Other Reaction(s): stomach upset Sulfa Antibiotics Unknown Other Reaction(s): childhood reaction Sulfamethoxazole-Trimethoprim Unknown Other Reaction(s): unknown Wound Dressing Adhesive Rash Other Reaction(s): rash PROBLEMS Active Ambulatory Problems Diagnosis Date Noted Abnormal findings on diagnostic imaging of breast 09/22/2021 Abnormality of left breast on screening mammogram 04/08/2023 Anxiety 06/07/2018 Bruxism ([facility]) 05/23/2020 Chronic fatigue syndrome 09/10/2021 Chronic tension-type headache 05/12/2020 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 Dysmenorrhea 09/14/2016 Menstrual disorder 04/08/2023 Seasonal allergies 11/25/2016 Menorrhagia 04/08/2023 Mild episode of recurrent major depressive disorder (HCC) ([facility]) 03/31/2022 Premature ventricular beats 09/14/2016 Vitamin D deficiency 12/05/2017 PVC (premature ventricular contraction) 09/14/2016 JESSENIA (generalized anxiety disorder) ([facility]) 11/25/2023 Resolved Ambulatory Problems Diagnosis Date Noted No Resolved Ambulatory Problems Past Medical History: Diagnosis Date Abnormal uterine bleeding (AUB) Allergies Arthritis Breast pain Chronic fatigue Chronic tension-type headache, intractable Mild episode of recurrent depressive disorder (CMS/HCC) MTHFR mutation Screening mammogram for breast cancer 09/27/2022 HISTORY PAST MEDICAL HISTORY SOCIAL HISTORY Past Medical History: Diagnosis Date Abnormal uterine bleeding (AUB) Allergies Anxiety Arthritis Breast pain Bruxism ([facility]) Chronic fatigue Chronic tension-type headache, intractable Dysmenorrhea Menorrhagia 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 She is well-developed. Genitourinary: Vulva normal. Right Adnexa: not tender and no mass present. Left Adnexa: not tender and no mass present. No cervical discharge. Breasts: Breasts are soft. Right: Normal. Left: Normal. HENT: Head: Normocephalic. Nose: Nose normal. Mouth/Throat: Mouth: Mucous membranes are moist. Cardiovascular: Rate and Rhythm: Normal rate and regular rhythm. Pulmonary: Effort: Pulmonary effort is normal. Breath sounds: Normal breath sounds. Abdominal: General: Bowel sounds are normal. There is no distension. Palpations: Abdomen is soft. Tenderness: There is no abdominal tenderness. There is no guarding or rebound. Musculoskeletal: General: No swelling. Normal range of motion. Cervical back: Normal range of motion. Right lower leg: No edema. Left lower leg: No edema. Neurological: General: No focal deficit present. Mental Status: She is alert and oriented to person, place, and time. Skin: General: Skin is warm and dry. Psychiatric: Mood and Affect: Mood normal. Behavior: Behavior normal. Vitals and nursing note reviewed. Exam conducted with a rhythmic gymnastics coach present. Vitals: Estimated body mass index is 26.47 kg/m as calculated from the following: Height as of 02/09/24: 5' 3 . Weight as of this encounter: 149 lb 6.4 oz. BP: 110/60 No LMP recorded. Patient has had an ablation. ASSESSMENT & PLAN ICD-10-CM 1. Well woman exam with routine gynecological exam Z01.419 THIN PREP TIS PAP AND HR HPV DNA CANCELED: POCT urinalysis dipstick manually resulted Annual Exam: Patient presents today for an annual exam. Patient states she is doing well and has no complaints. Pap was obtained without difficulty. No orders of the defined types were placed in this encounter. Follow Up: Patient is to return in one year for annual unless needed otherwise. Documented by Tricia Lazaro LPN on behalf of: TEENA Sahu documented in this encounter [facility] Evaluation note Diagnosis Well woman exam with routine gynecological exam Routine gynecological examination [facility] Diagnosis JESSENIA (generalized anxiety disorder) ([facility])- Primary Generalized anxiety disorder Recurrent acute serous otitis media of right ear Diabetes mellitus screening Screening for diabetes mellitus Chronic fatigue syndrome Other screening mammogram Screening for diabetes mellitus (DM) Screening for diabetes mellitus Screening, anemia, deficiency, iron Screening for iron deficiency anemia Screening, lipid Dysuria Vitamin D deficiency Wellness examination [facility] Diagnosis Wellness examination- Primary JESSENIA (generalized anxiety disorder) (CMS/HCC) Generalized anxiety disorder Mild episode of recurrent major depressive disorder (HCC) (CMS/HCC) Seasonal allergies Allergic rhinitis, cause unspecified Vitamin D deficiency Other screening mammogram Chronic tension-type headache, not intractable Chronic tension type headache Chronic fatigue syndrome PVC (premature ventricular contraction) Other premature beats Bruxism (CMS/HCC) Other specified psychophysiological malfunction Trochanteric bursitis of left hip Dysuria [facility] Diagnosis Acute non-recurrent maxillary sinusitis- Primary Bronchitis Bronchitis, not specified as acute or chronic [facility]* Diagnosis Chronic dysfunction of both eustachian tubes- Primary [facility]* Diagnosis Chronic dysfunction of both eustachian tubes- Primary [facility]* Diagnosis Acute non-recurrent maxillary sinusitis- Primary [facility]* Diagnosis Ear fullness, bilateral- Primary Referred otalgia of right ear ETD (Eustachian tube dysfunction), bilateral documented in this encounter [facility] Summary Purpose Family History No Family History Records FoundNo Family History Records FoundNo Family History Records Found Advance Directives No Advanced Directives Records FoundNo Advanced Directives Records FoundNo Advanced Directives Records Found Additional Source Comments INFORMATION SOURCE (unrecogn ized section and content) DATE CREATED AUTHOR 09/25/2021 [facility] DATE CREATED AUTHOR AUTHOR'S ORGANIZ ATION [facility]23[facility]2022 [facility] DATE CREATED AUTHOR AUTHOR'S ORGANIZ ATION 05/19/2025 [facility] EPIC Reason for Visit (unrecogniz ed section and content) Reason Comments Well Women Visit Reason Comments Follow-up Reason Comments Annual Exam Reason Comments Ear Fullness Reason Onset Date Comments Referral 05/07/2025 Reason Onset Date Comments Medication Question 05/08/2025 Reason Comments Ear Problem Specialty Diagnoses / Procedures Referred By Margaret kirby Referred To Contact Otolaryngology Diagnoses Chronic dysfunction of both eustachian tubes Procedures [place] OFFICE/OUTPATIENT NEW HIGH MDM 60 MINUTES Sujit Newby, [employer] [address] [place] [id number] Phone: tel: fax: Rosey England MD [address] [place] [address] [place] [address] Phone: tel: fax: Referral ID Status Reason Start Date Expiration Date V isits Requested Visits Authorized [id number] Closed Specialty Services Required 05/07/2025 11/03/2025 1 1 Care Teams (unrecognized sec tion and content) [employer] Quality Technician Relationship Specialty Start Date End Date Ramon Ngo DO [address] [place] [address] PCP - General Family Medicine 04/08/23 Ramon Ngo DO [address] [place] [address] PCP - Medical [place] [employer] 08/15/18 08/14/99 [employer] Quality Technician Relationship Specialty Start Date End Date Ramon Ngo DO [address] [place] [address] PCP - General Family Medicine 04/08/23 Ramon Ngo DO [address] [place] [address] PCP - Medical [place] [employer] 08/15/18 08/14/99 [employer] Quality Technician Relationship Specialty Start Date End Date Ramon Ngo DO [address] [place], [place] [id number] PCP - General Family Medicine 04/08/23 Ramon Ngo DO [address] [place] [address] PCP - Medical [place] [employer] 08/15/18 08/14/99 [employer] Quality Technician Relationship Specialty Start Date End Date Ramno Ngo DO [address] [place] [address] PCP - General Family Medicine 04/08/23 Ramon Ngo DO [address] [place] [address] PCP - Medical [place] [employer] 08/15/18 08/14/99 [employer] Quality Technician Relationship Specialty Start Date End Date Ramon Ngo DO [address] [place] [address] PCP - General Family Medicine 04/08/23 Ramon Ngo DO [address] [place] [address] PCP - Medical [place] [employer] 08/15/18 08/14/99 [employer] Quality Technician Relationship Specialty Start Date End Date Ramon Ngo DO [address] [place] [address] PCP - General Family Medicine 04/08/23 Ramon Ngo DO [address] [place] [address] PCP - Medical [place] [employer] 08/15/18 08/14/99 [employer]erg[employer] Quality Technician Relationship Specialty Start Date End Date Ramon Ngo DO [address] [place] [address] PCP - General Family Medicine 04/08/23 Ramon Ngo DO [address] [place] [address] PCP - Medical [place] [employer] 08/15/18 08/14/99 [employer] Quality Technician Relationship Specialty Start Date End Date Ramon Ngo DO [address] [place] [address] PCP - General Family Medicine 04/08/23 Ramon Ngo DO [address] [place] [address] PCP - Medical [place] [employer] 08/15/18 08/14/99 Fiberglass Quality Technician Relationship Specialty Start Date End Date Ramon Ngo DO [address] [place] [address] PCP - General Family Medicine 04/08/23 Ramon Ngo DO [address] [place] [address] PCP - Medical [place] [employer] 08/15/18 08/14/99 Fiberglass Quality Technician Relationship Specialty Start Date End Date Ramon Ngo DO [address] [place] [address] PCP - General Family Medicine 04/08/23 Ramon Ngo DO [address] [place] [address] PCP - Medical [place] [employer] 08/15/18 08/14/99 [employer]erglass Quality Technician Relationship Specialty Start Date End Date Ramon Ngo DO [address] [place] [address] PCP - General Family Medicine 04/08/23 Ramon Ngo DO [address] [place] [address] PCP - Medical [place] [employer] 08/15/18 08/14/99 [employer]erglass Quality Technician Relationship Specialty Start Date End Date Ramon Ngo, DO [address] [place] [address] PCP - General Family Medicine 04/08/23 Ramon Ngo, [address] [place] [address] PCP - Medical [place] [employer] 08/15/18 08/14/99 FOR RECORDS PERTAINING TO PATIENTS WHO ARE OR HAVE BEEN ENROLLED IN A CHEMICAL DEPENDENCY/SUBSTANCEABUSE PROGRAM, SOME INFORMATION MAY BE OMITTED. This clinical summary was aggregated from multiple sources. Caution should be exercised in using it in the provision of clinical care. This summary normalizes information from multiple sources, and as a consequence, information in this document may materially change the coding, format and clinical context of patient data. In addition, data may be omitted in some cases. CLINICAL DECISIONS SHOULD BE BASED ON THE PRIMARY CLINICAL RECORDS. [employer] provides no warranty or guarantee of the accuracy or completeness of information in this document.
[2025-05-31 15:13] LABS: Age Gdln ACOG Testing Note (.); IGP, Aptima HPV, rfx 16/18,45 Note (.)
== END 2025-05-27 12:49 | disposition home or self-care (01) ==
LOC: LAB 12:48
PROVIDERS: Visit Provider Physician Assistant
DX: Z01.419 Encounter for gynecological examination (general) (routine) without abnormal findings (principal)
CPT/HCPCS: 87624; 88175